=== PATIENT | male | born 1945 | race Caucasian/White ===

== ENCOUNTER → 2017-06-02 | Outpatient (CLI) | payer MEDICARE ==
[~2017-06-02] MED LIST: CATHETER FLUSH 10 ML SYR IV PRN; IBUP1TAB14 PO; INDO25CA PO; IOHEXOL 350 MG/ML 100 ML (OMNIPAQUE 350) VIAL IV ONE; LISI-552 PO; NS 250 ML (IVPB) BAG IV ONE; RECEIVED CONTRAST (Hold Metformin) IV SCH
--- NOTE | 2017-06-02 13:06 | Diagnostic Imaging Report ---
INDICATION: Abnormal outside chest x-ray. CT chest obtained with IV contrast bolus. The outside chest x-ray is not available for comparison at this time. FINDINGS: There are no enlarged mediastinal or hilar nodes. There are calcified nodes in the right hilum and subcarinal region as well as in the left hilum, compatible with old granulomatous disease. There are coronary artery calcifications compatible with coronary artery disease. There are no enlarged axillary nodes. There is no pleural or pericardial effusion. Visualized portions of the upper abdomen were unremarkable. Lung parenchymal windows demonstrate a calcified granuloma in the right middle lobe as well as an additional calcified granuloma in the left upper lobe anteriorly and medially. There is additional small calcified granuloma in the right lower lobe. There is no consolidation or noncalcified pulmonary nodule. IMPRESSION: CT chest demonstrates no adenopathy or suspicious mass lesion. There are old granulomatous changes as described above with calcified nodes in the mediastinum and tracey and calcified granulomata in both lungs. There is no suspicious nodule. There are coronary artery calcifications compatible with coronary artery disease. Dictated by: Dictated on workstation # [id number]
== END ==
LOC: RAD 12:20
PROVIDERS: ATTEND Nurse Practitioner Family
DX: R91.8 Other nonspecific abnormal finding of lung field (principal); I25.10 Atherosclerotic heart disease of native coronary artery without angina pectoris
CPT/HCPCS: 71260

== ENCOUNTER → 2017-07-14 | Outpatient (CLI) | payer MEDICARE ==
[~2017-07-14] VITALS: Ht 172.7 cm; Wt 113.4 kg
[~2017-07-14] MED LIST changes: -IOHEXOL 350 MG/ML 100 ML (OMNIPAQUE 350) VIAL IV ONE; -NS 250 ML (IVPB) BAG IV ONE; -RECEIVED CONTRAST (Hold Metformin) IV SCH; +REGADENOSON 0.4 MG/5 ML SYR (LEXISCAN) IV ONE
[2017-07-14 09:21] VITALS: BP 126/77
--- NOTE | 2017-07-14 14:42 | STRESS TEST ---
DATE OF SERVICE: 07/14/2017 RESTING AND POST REGADENOSON TECHNETIUM-99M TETROFOSMIN SPECT CT IMAGING ORDERING PHYSICIAN: Callie Dodson APRN PRIMARY CARE PHYSICIAN: [facility]. CLINICAL DIAGNOSIS: Chest discomfort. Baseline images were carried out for 10.94 mCi of technetium-99m Tetrofosmin. This was followed by 0.4 mg Regadenoson and 28.5 mCi of technetium-99m Tetrofosmin for stress imaging. The electrocardiogram showed sinus rhythm throughout the study and did not change significantly. The patient tolerated the procedure well. Review of images at rest and following stress does not indicate any distinct perfusion defects consistent with significant myocardial ischemia or infarction. Left ventricular end-diastolic volume is 55 mL. TID is absent (1.03). Left ventricular ejection fraction is calculated to be 67%. CONCLUSIONS: 1. No evidence of any significant myocardial ischemia or infarction on the study. 2. Normal regional wall motion. 3. Normal global left ventricular systolic function with a calculated ejection fraction of 67%. Job ID: [id number] DocumentID: [id number] Dictated Date: 07/14/2017 13:54:13 Pool Nurse Date: 07/14/2017 14:41:35 Dictated By: ELEAZAR FUNK MD, MA, FACP, FACC,
== END ==
LOC: CARD 07:13
PROVIDERS: ATTEND Nurse Practitioner Family
DX: R07.89 Other chest pain (principal); R06.09 Other forms of dyspnea; I10 Essential (primary) hypertension; Z72.0 Tobacco use
CPT/HCPCS: 78452; 93017

== ENCOUNTER → 2017-07-27 | Outpatient (CLI) | payer MEDICARE ==
[~2017-07-27] MED LIST changes: -CATHETER FLUSH 10 ML SYR IV PRN; -REGADENOSON 0.4 MG/5 ML SYR (LEXISCAN) IV ONE
--- NOTE | 2017-07-27 14:51 | Diagnostic Imaging Report ---
PROCEDURE: US carotid duplex bilateral. TECHNIQUE: Multiple Real-time grayscale images were obtained over the carotid arteries in various projections bilaterally. Additional duplex Doppler and color Doppler images were also obtained. INDICATION: Chest discomfort. FINDINGS: Mild plaquing at the carotid bifurcations bilaterally is noted. The velocities are normal bilaterally. No velocity elevation or stenosis is seen. Both vertebral arteries demonstrate antegrade flow. Parameters based on the consensus panel Flannery-Scale and Doppler ultrasound criteria published February 2003, Radiology, Volume 229. DOPPLER (peak systolic velocity M/S Right Left CCA .74 .87 ICA Proximal .56 .62 ICA Mid .55 .65 ICA Distal .47 .71 RATIO .72 .82 ECA 1.0 1.1 VERT .37 .36 IMPRESSION: Mild bilateral carotid plaque. There is no evidence of a hemodynamically significant stenosis. Dictated by: Dictated on workstation # [id number]
== END ==
LOC: RAD 12:40
PROVIDERS: ATTEND Nurse Practitioner Family
DX: I65.23 Occlusion and stenosis of bilateral carotid arteries (principal); I10 Essential (primary) hypertension; R06.00 Dyspnea, unspecified; Z72.0 Tobacco use
CPT/HCPCS: 93880

== ENCOUNTER 2018-08-01 06:44 | Outpatient (CLI) | payer MEDICARE ==
[~2018-08-01] VITALS: Ht 172.7 cm; Wt 113.4 kg
[~2018-08-01 06:44] MED LIST changes: -INDO25CA PO; +INDO25CA15 PO
== END 2018-08-02 10:19 ==
LOC: PREOP 06:44
PROVIDERS: ATTEND Specialist
DX: Z01.818 Encounter for other preprocedural examination (principal)

== ENCOUNTER 2018-08-04 07:52 | Day surgery (SDC) | payer MEDICARE ==
[~2018-08-04] VITALS: Ht 172.7 cm; Wt 113.4 kg
[2018-08-04 08:08] VITALS: BP 144/75
[2018-08-04] MEDS: TETRACAINE 0.5% OPHTH SOLN 4 ML BTL (SINGLE DOSE ONLY) OU PRN ×4 (08:09→08:29)
[2018-08-04] MEDS: TROPICAMIDE 1% OPH SOLN (MYDRIACYL) 15 ML BTL OU PRN ×3 (08:12→08:29)
[2018-08-04] MEDS: PHENYLEPHRINE 10% OPHTH (NEO-SYN) 5 ML BTL OU PRN ×3 (08:15→08:29)
--- NOTE | 2018-08-04 08:16 | Ophthalmologist Pre-Op Note ---
Pre-Operative Progress Note H&P Reviewed The H&P was reviewed, patient examined and no changes noted. Date H&P Reviewed: Aug 04, 2018 Time H&P Reviewed: 08:16 Pre-Op Dx Secondary Cataract, Bilateral Eyes CLARISA ERNST MD Aug 04, 2018 08:16
[2018-08-04 08:45] VITALS: BP 144/75
--- NOTE | 2018-08-04 08:46 | Ophthalmology Operative Report ---
YAG Capsulotomy PREOPERATIVE DIAGNOSIS: Secondary Cataract Bilateral POSTOPERATIVE DIAGNOSIS: Secondary Cataract Bilateral PROCEDURE: YAG Capsulotomy, Bilateral SURGEON: Chip Ernst ANESTHESIA: Topical anesthesia COMPLICATIONS: None ESTIMATED BLOOD LOSS: Minimal DESCRIPTION OF PROCEDURE: After proper informed consent was obtained, the patient's, a 73 male , received one drop of Tropicamide and one drop of Tetracaine in each eye. The patient was then placed at the YAG laser and using a power of [4.3 ] millijoules and bursts [ 21] right eye and [ 27] left eye were used to fashion a central capsulotomy. The patient tolerated the procedure well without complications and the patient's pressure was [11/10 ] shortly after the laser. CHIP ERNST MD Aug 04, 2018 08:46
--- OUTSIDE RECORDS SUMMARY | 2018-08-04 10:11 | XMS REPORT ---
Author Author MINAL MITCHELL Organization [facility] Address [address] [place] [address] Care Team Providers Care Literary Writer Name Role Phone MINAL MITCHELL Unavailable PROBLEMS Type Condition ICD9-CM Code YLU45-TD Code Onset Dates Condition Status SNOMED Code Problem Unspecified hypertrophic and atrophic condition of skin 701.9 Active 294973295 Problem Essential hypertension I10 Active 74175346 Problem Hepatitis C without hepatic coma B19.20 Active 47094841 Problem Lung nodule seen on imaging study R91.1 Active 121138602 Problem Liver fibrosis K74.0 Active 81264340 Problem Back pain M54.9 Active 422172877 Problem Essential hypertension with goal blood pressure less than 130\/85 I10 Active 75348330 Problem History of colon polyps Z86.010 Active 312223760 Problem Lesion of skin of face L98.9 Active 395669196270 Problem History of basal cell cancer Z85.828 Active 865076137 ALLERGIES Substance Reaction Event Type Date Status Seasame Seeds anaphylaxis Non Drug Allergy Nov, Active ENCOUNTERS Encounter Location Date Diagnosis [place] [id number] [place] [address] Nov, Essential hypertension I10 [place] [address] [place] [id number] [place] [address] 25061[address] Sep, [place] [address] [place] [id number] [place] [address] 9[address]19- 5[address] 14 Jun, 2017 Chest discomfort R07.89 ; Dyspnea on exertion R06.09 ; Essential hypertension I10 ; Tobacco use Z72.0 and BMI 40.0-44.9, adult Z68.41 [place] [address] [address] 09 May, 2017 Lung nodule seen on imaging study R91.1 [place] [address] [place] [id number] [place] [address]00- [address] 06 May, 2017 Heartburn R12 ; Chest discomfort R07.89 ; Racing heart beat R00.0 and BMI 40.0-44.9, adult Z68.41 [facility] [address] [place] [id number] [place] [address] 10622- 2628 Nov, Liver fibrosis K74.0 and Hepatitis C without hepatic coma B19.20 [facility] [address] [place] [id number] [place] [address] 20016- 0247 Jun, [facility] [address] [address] Jun, Hepatitis C without hepatic coma B19.20 [facility] [address] [place] [id number] [place] [address] 68176- 2889 Jun, [facility] [address] [address] May, Back pain M54.9 [facility] [address] [place] [id number] [place] [address] 57799- 5580 Feb, [facility] [address] [place] [id number] [place] [address] 23843- 0332 Feb, Back pain M54.9 and Essential hypertension with goal blood pressure less than 130\/85 I10 [facility] [address] [place] [id number] [place] [address] 71122- 6978 Dec, Hepatitis C without hepatic coma B19.20 [facility] [address] [place] [id number] [place] [address] 39[address]1740 Nov, Acute right-sided thoracic back pain M54.6 [facility] [address] [address] Oct, Encounter for immunization Z23 [facility] [address] [place] [id number] [place] [address] 80797- 0159 Oct, Hepatitis C without hepatic coma B19.20 [facility] [address] [address] Sep, Hepatitis C without hepatic coma B19.20 [facility] [address] [address] August, [facility] [address] [address] August, Back pain M54.9 ; Essential hypertension with goal blood pressure less than 130\/85 I10 ; Hepatitis C without hepatic coma B19.20 ; Lesion of skin of face L98.9 and History of basal cell cancer Z85.828 [facility] [address] [address] August, [facility] [address] [place] [address] [address] August, Hepatitis C without hepatic coma B19.20 [facility] [address] [address] August, [facility] [address] [address] August, [facility] [address] [address] Jul, Back pain M54.9 ; Essential hypertension with goal blood pressure less than 130\/85 I10 and Hepatitis C without hepatic coma B19.20 [facility] [address] [address] Jun, Hepatitis C without hepatic coma B19.20 [facility] [address] [address] Jun, [facility] [address] [place] [id number] [place] [address] 66163- 7364 May, Hepatitis C without hepatic coma B19.20 [facility] [address] [address] 27[address] May, Hepatitis C without hepatic coma B19.20 [facility] [address] [place] [id number] [place] [address] 73414- 3243 May, Hepatitis C without hepatic coma B19.20 [facility] [address] [place] [id number] [place] [address] 38762- 6118 Apr, Hepatitis C without hepatic coma B19.20 [place] [address] [place] [id number] [place] [address] 31749- 9640 Apr, Essential hypertension I10 ; Hepatitis C without hepatic coma B19.20 and History of colon polyps Z86.010 [place] [address] [address]- 269[address] Apr, Hepatitis C without hepatic coma B19.20 ; Encounter for immunization Z23 and High blood pressure (not hypertension) R03.0 [place] [address] [place] [id number] [place] [address] 54496- 5562 Jan, [facility] [address] [place] [id number] [place] [address] 52482- 7932 Jan, [place] [address] [place] [id number] [place] [address] 53505- 2769 Jan, [facility] [address] [place] [id number] [place] [address] 76527- 1268 Jan, [place] [address] [place] [id number] [place] [address] 90136- 9988 Jul, IMMUNIZATIONS No Known Immunizations SOCIAL HISTORY Never Assessed REASON FOR VISIT New provider visit, PT reports no concerns. -Tj MCCANN PLAN OF CARE VITAL SIGNS Height 67 in 2017-11-30 Weight 254 lbs 2017-11-30 Temperature 98.1 degrees Fahrenheit 2017-11-30 Heart Rate 76 bpm 2017-11-30 Respiratory Rate 20 2017-11-30 Oximetry 95 % 2017-11-30 BMI 39.78 kg/m2 2017-11-30 Blood pressure systolic 138 mmHg 2017-11-30 Blood pressure diastolic 70 mmHg 2017-11-30 MEDICATIONS Medication Instructions Dosage Frequency Start Date End Date Duration Status Lisinopril 20 mg Orally Once a day TAKE ONE TABLET BY MOUTH ONCE DAILY 24h 30 Active Indomethacin 50MG 1 capsule with food or milk 12h Active Ibuprofen PM 200-38 MG Orally Once a day 2 tablets at bedtime as needed 24h Active RESULTS No Results PROCEDURES Procedure Date Ordered Result Body Site [facility] VISIT ESTABLISHED PATIENT Nov 30, 2017 INSTRUCTIONS MEDICATIONS ADMINISTERED No Known Medications MEDICAL (GENERAL) HISTORY Type Description Date Medical History diverticulosis Medical History HTN Medical History Hepatitis C Medical History History of colon polyps -due for repeat colonosocpy 3 years [place] in 2018 Medical History Basal Cell Carcinoma Face Surgical History Appendectomy Surgical History Colonoscopy Surgical History cataract surgery, both eyes 2013 Surgical History Colonoscopy tubular adenoma due 06/2015 Surgical History Mole removal on back and next to left eye 09/25/2015 Hospitalization History surgeries
--- OUTSIDE RECORDS SUMMARY | 2018-08-04 10:11 | XMS REPORT ---
Author Author MARSHALL MORALES [facility] e[employer] Address Unknown Phone Unavailable Care Team Providers Care Technical Business Systems Analyst Name Role Phone MARSHALL MORALES CP Unavailable Allergies, Adverse Reactions, Alerts Substance Reaction Event Type Seasame Seeds anaphylaxis Non Drug Allergy Problems Problem Type Condition Code Onset Dates Condition Status Problem History of colon polyps Z86.010 Active Problem Hepatitis C without hepatic coma B19.20 Active Problem Essential hypertension I10 Active Assessment Essential hypertension with goal blood pressure less than 130\/85 I10 Active Assessment Hepatitis C without hepatic coma B19.20 Active Problem Unspecified hypertrophic and atrophic condition of skin 701.9 Active Assessment Back pain M54.9 Active Medications Medication Code System Code Instructions Start Date End Date Status Dosage Ibuprofen [facility] [address]-21 800 MG Orally Three times a day 1 tablet Lisinopril [facility] [address]-18 20 mg Orally Once a day May 15, 2015 1 tablet Procedures Procedure Coding System Code Date X-RAY EXAM OF THORACIC SPINE CPT-4 52861 August 13, 2015 LAB NOT BILLED BY [facility] CPT-4 NOBLL August 13, 2015 X-RAY EXAM OF LOWER SPINE CPT-4 19991 August 13, 2015 Office Visit, Est Pt., Level 4 CPT-4 29079 August 13, 2015 [facility] VISIT ESTABLISHED PATIENT CPT-4 G0467 August 13, 2015 VENIPUNCT, ROUTINE* CPT-4 00719 August 13, 2015 Vital Signs Date/Time: August 13, 2015 Temperature 97.8 F Weight 240.6 lbs Height 67 in BMI 37.68 Index Blood Pressure Diastolic 66 mmHg Blood Pressure Systolic 130 mmHg Cardiac Monitoring Heart Rate 86 bpm Results No Known Results Summary Purpose eClinicalWorks Submission
--- OUTSIDE RECORDS SUMMARY | 2018-08-04 10:11 | XMS REPORT ---
Author Author MARSHALL MORALES Organization [facility] Address [address] [place] [address] Care Team Providers Care Foreign Exchange Position Clerk Name Role Phone MARSHALL MORALES Unavailable PROBLEMS Type Condition ICD9-CM Code WPH41-YW Code Onset Dates Condition Status SNOMED Code Problem Unspecified hypertrophic and atrophic condition of skin 701.9 Active 732258519 Problem Essential hypertension I10 Active 74599486 Problem Hepatitis C without hepatic coma B19.20 Active 56988053 Problem Liver fibrosis K74.0 Active 79483796 Problem Back pain M54.9 Active 754085510 Problem Essential hypertension with goal blood pressure less than 130\/85 I10 Active 13240356 Problem History of colon polyps Z86.010 Active 110658293 Problem Lesion of skin of face L98.9 Active 630087787905 Problem History of basal cell cancer Z85.828 Active 592547158 ALLERGIES No Information SOCIAL HISTORY Never Assessed PLAN OF CARE VITAL SIGNS MEDICATIONS Medication Instructions Dosage Frequency Start Date End Date Duration Status Indomethacin 50 mg Orally Twice a day 1 capsule with food or milk 12h Active RESULTS No Results PROCEDURES No Known procedures IMMUNIZATIONS No Known Immunizations MEDICAL (GENERAL) HISTORY Type Description Date Medical History diverticulosis Medical History HTN Medical History Hepatitis C Medical History History of colon polyps -due for repeat colonosocpy 3 years [place] in 2018 Medical History Basal Cell Carcinoma Face Surgical History Appendectomy Surgical History Colonoscopy Surgical History cataract surgery, both eyes 2013 Surgical History Colonoscopy 06/2015 Surgical History Mole removal on back and next to left eye 09/25/2015 Hospitalization History surgeries
--- OUTSIDE RECORDS SUMMARY | 2018-08-04 10:11 | XMS REPORT ---
Author Author MARSHALL MORALES [facility] Address [address] [place] [address] Care Team Providers Care Heater Planer Operator Name Role Phone CARMEN MARSHALL Unavailable PROBLEMS Type Condition ICD9-CM Code QVF15-BC Code Onset Dates Condition Status SNOMED Code Problem Unspecified hypertrophic and atrophic condition of skin 701.9 Active 420057330 Problem Essential hypertension I10 Active 36621941 Problem Hepatitis C without hepatic coma B19.20 Active 40711022 Problem Lung nodule seen on imaging study R91.1 Active 673089435 Problem Liver fibrosis K74.0 Active 19079829 Problem Back pain M54.9 Active 709466846 Problem Essential hypertension with goal blood pressure less than 130\/85 I10 Active 31470954 Problem History of colon polyps Z86.010 Active 838549220 Problem Lesion of skin of face L98.9 Active 684876509030 Problem History of basal cell cancer Z85.828 Active 363472046 ALLERGIES No Information ENCOUNTERS Encounter Location Date Diagnosis [place] [address] [place] [address]11- [address] 15 Nov, 2017 Essential hypertension I10 [place] [address] [place] [id number] [place] [address] 88598- 8434 07 Sep, 2017 [place] [address] [place] [id number] [place] [address] 62024- 7458 14 Jun, 2017 Chest discomfort R07.89 ; Dyspnea on exertion R06.09 ; Essential hypertension I10 ; Tobacco use Z72.0 and BMI 40.0-44.9, adult Z68.41 [place] [address] [place] [id number] [place] [address] 30915- 0082 09 May, 2017 Lung nodule seen on imaging study R91.1 [place] [address] [place] [address] May, Heartburn R12 ; Chest discomfort R07.89 ; Racing heart beat R00.0 and BMI 40.0-44.9, adult Z68.41 [facility] [address] [address]- [address] Nov, Liver fibrosis K74.0 and Hepatitis C without hepatic coma B19.20 [facility] [address] [address]- [address] Jun, [facility] [address] [address]- [address] Jun, Hepatitis C without hepatic coma B19.20 [facility] [address] [address]- [address] Jun, [facility] [address] [address]- 2779 May, Back pain M54.9 [facility] [address] [address]- [address] Feb, [facility] [address] [address]- [address] Feb, Back pain M54.9 and Essential hypertension with goal blood pressure less than 130\/85 I10 [facility] [address] [address]- [address]20 Dec, Hepatitis C without hepatic coma B19.20 [facility] [address] [place] [id number] [place] [address] 78070 -0641 Nov, Acute right-sided thoracic back pain M54.6 [facility] [address] [address] Oct, Encounter for immunization Z23 [facility] [address] [address]- [address]21 Oct, Hepatitis C without hepatic coma B19.20 [facility] [address] [place] [address] 0[address] Sep, Hepatitis C without hepatic coma B19.20 [facility] [address] [place] [address] August, [facility] [address] [place] [address]- [address] August, Back pain M54.9 ; Essential hypertension with goal blood pressure less than 130\/85 I10 ; Hepatitis C without hepatic coma B19.20 ; Lesion of skin of face L98.9 and History of basal cell cancer Z85.828 [facility] [address], [place] [address] August, [facility] [address] [place] [address] August, Hepatitis C without hepatic coma B19.20 [facility] [address] [place] [address] 6[address] August, [facility] [address] [place] [address] August, [facility] [address] [place] [address]- 5[address] Jul, Back pain M54.9 ; Essential hypertension with goal blood pressure less than 130\/85 I10 and Hepatitis C without hepatic coma B19.20 [facility] [address] [place] [address]- 6[address] Jun, Hepatitis C without hepatic coma B19.20 [facility] [address] [place] [address]- 29[address] Jun, [facility] [address] [place] [address]- 27[address] May, Hepatitis C without hepatic coma B19.20 [facility] [address] [place] [address]- [address]369 May, Hepatitis C without hepatic coma B19.20 [place] [address] [place] [address] 58697- 2593 May, Hepatitis C without hepatic coma B19.20 [place] [address] [place] [id number] [place] [address] 47095- 4748 Apr, Hepatitis C without hepatic coma B19.20 [place] [address] [place] [id number] [place] [address] 14536- 5797 Apr, Essential hypertension I10 ; Hepatitis C without hepatic coma B19.20 and History of colon polyps Z86.010 [place] [address] [place] [id number] [place] [address] 52079- 8392 Apr, Hepatitis C without hepatic coma B19.20 ; Encounter for immunization Z23 and High blood pressure (not hypertension) R03.0 [place] [address] [place] [id number] [place] [address] 65754- 8804 Jan, [place] [address] [place] [id number] [place] [address] 31856- 9508 Jan, [place] [address] [place] [id number] [place] [address] 84011- 1860 Jan, [place] [address] [place] [id number] [place] [address] 86811- 4843 Jan, [place] [address] [place] [id number] [place] [address] 44867- 5879 Jul, IMMUNIZATIONS No Known Immunizations SOCIAL HISTORY Never Assessed REASON FOR VISIT Refill request PLAN OF CARE VITAL SIGNS MEDICATIONS Medication Instructions Dosage Frequency Start Date End Date Duration Status Lisinopril 20 mg Orally Once a day TAKE ONE TABLET BY MOUTH ONCE DAILY 24h 30 Active RESULTS No Results PROCEDURES No Known procedures INSTRUCTIONS MEDICATIONS ADMINISTERED No Known Medications MEDICAL [...]
--- OUTSIDE RECORDS SUMMARY | 2018-08-04 10:11 | XMS REPORT ---
Author Author JOSE BOUDREAUX [facility] Address [address] [place] [address] Care Team Providers Care Extracorporeal Technician Name Role Phone JOSE BOUDREAUX Unavailable PROBLEMS Type Condition ICD9-CM Code [id number] Code Onset Dates Condition Status SNOMED Code Problem Unspecified hypertrophic and atrophic condition of skin 701.9 Active 376578593 Problem Essential hypertension I10 Active 46470751 Problem Hepatitis C without hepatic coma B19.20 Active 91678805 Problem Lung nodule seen on imaging study R91.1 Active 730824575 Problem Liver fibrosis K74.0 Active 32629930 Problem Back pain M54.9 Active 920028086 Problem Essential hypertension with goal blood pressure less than 130\/85 I10 Active 91343169 Problem History of colon polyps Z86.010 Active 634763386 Problem Lesion of skin of face L98.9 Active 728486477018 Problem History of basal cell cancer Z85.828 Active 748321199 ALLERGIES Substance Reaction Event Type Date Status Seasame Seeds anaphylaxis Non Drug Allergy Jun, Active ENCOUNTERS Encounter Location Date Diagnosis [place] [id number] [address] Nov, Essential hypertension I10 [facility] [address] [id number] [place] [address] 18132- 4209 Sep, [facility] [id number] [place] [address] 57747- 1919 14 Jun, 2017 Chest discomfort R07.89 ; Dyspnea on exertion R06.09 ; Essential hypertension I10 ; Tobacco use Z72.0 and BMI 40.0-44.9, adult Z68.41 [place] [address] [place] [address] 14203- 3401 09 May, 2017 Lung nodule seen on imaging study R91.1 [place] [address] [place] [address] 09644- 7775 06 May, 2017 Heartburn R12 ; Chest discomfort R07.89 ; Racing heart beat R00.0 and BMI 40.0-44.9, adult Z68.41 [facility] [id number] [place] [address] 22694- 3295 Nov, Liver fibrosis K74.0 and Hepatitis C without hepatic coma B19.20 [facility] [id number] [place] [address] 83952- 6654 Jun, [facility] [address] [id number] [place] [address] 52394- 9104 Jun, Hepatitis C without hepatic coma B19.20 [facility] [id number] [place] [address] 38325- 6500 Jun, [facility] [id number] [place] [address] 95135- 9190 May, Back pain M54.9 [facility] [id number] [place] [address] 45918- 2653 Feb, [facility] [id number] [place] [address] 63504- 1560 Feb, Back pain M54.9 and Essential hypertension with goal blood pressure less than 130\/85 I10 [facility] [id number] [place] [address] 51988- 4146 Dec, Hepatitis C without hepatic coma B19.[address] [facility] [id number] [place] [address] 45373 -0197 Nov, Acute right-sided thoracic back pain M54.6 [facility] [address] [id number] [place] [address] 85761- 4308 Oct, Encounter for immunization Z23 [facility] [id number] [place] [address] 35822- 3854 Oct, Hepatitis C without hepatic coma B19.20 [facility] [address], [place] [address] 2882 Sep, Hepatitis C without hepatic coma B19.20 [facility] [address], [place] [address] August, [facility] [address], [place] [address] August, Back pain M54.9 ; Essential hypertension with goal blood pressure less than 130\/85 I10 ; Hepatitis C without hepatic coma B19.20 ; Lesion of skin of face L98.9 and History of basal cell cancer Z85.828 [facility] [address], [place] [address] August, [facility] [address] [address] 1212 August, Hepatitis C without hepatic coma B19.20 [facility] [address], [place] [address] 38[address] August, [facility] [address], [place] [address] 75[address] August, [facility] [address], [place] [address] 4670 Jul, Back pain M54.9 ; Essential hypertension with goal blood pressure less than 130\/85 I10 and Hepatitis C without hepatic coma B19.20 [facility] [address], [place] [address] 25[address] Jun, Hepatitis C without hepatic coma B19.20 [facility] [address], [place] [address] 6099 Jun, [facility] [address], [place] [address] 1482 May, Hepatitis C without hepatic coma B19.20 [facility] [address], [place] [address] 4071 May, Hepatitis C without hepatic coma B19.20 [facility] [address] [id number] [place] [address] 88495- 3495 May, Hepatitis C without hepatic coma B19.20 [facility] [address] [id number] [place] [address] 48781- 6609 Apr, Hepatitis C without hepatic coma B19.20 [place] [address] 43807- 7455 Apr, Essential hypertension I10 ; Hepatitis C without hepatic coma B19.20 and History of colon polyps Z86.010 [place] [address] 50454- 4026 Apr, Hepatitis C without hepatic coma B19.20 ; Encounter for immunization Z23 and High blood pressure (not hypertension) R03.0 [place] [address] 6[address]- 5269 Jan, [place] [address] [place] [id number] [place] [address] 14332- 6914 Jan, [place] [address] 50934- 7879 Jan, [place] [address] [place] [id number] [place] [address] 54011- 5206 Jan, [place] [address] 6[address]- 0551 Jul, IMMUNIZATIONS No Known Immunizations SOCIAL HISTORY Never Assessed REASON FOR VISIT Racing heart/chest discomfort PLAN OF CARE Activity Details Follow Up after testing Reason: VITAL SIGNS Height 67 in 2017-06-29 Weight 258 lbs 2017-06-29 Heart Rate 76 bpm 2017-06-29 Respiratory Rate 20 2017-06-29 Oximetry 97 % 2017-06-29 BMI 40.40 kg/m2 2017-06-29 Blood pressure systolic 136 mmHg 2017-06-29 Blood pressure diastolic 78 mmHg 2017-06-29 MEDICATIONS Medication Instructions Dosage Frequency Start Date End Date Duration Status Fish Oil 1000 MG Orally Once a day 1 capsule 24h May, 30 day(s ) Not-Taking Indomethacin 50 mg Orally Twice a day 1 capsule with food or milk 12h 30 Active Ibuprofen PM 200-38 MG Orally Once a day 2 tablets at bedtime as needed 24h Active Lisinopril 20 MG TAKE ONE TABLET BY MOUTH ONCE DAILY 30 Active Omeprazole 40 mg Orally Once a day 1 capsule 24h May, 30 day(s ) Not-Taking RESULTS Name Result Date Reference Range Lexiscan Stress Nuclear Test 2017-07-14 Carotid Ultrasound 2017-07-27 Echo 2D 2017-08-09 PROCEDURES Procedure Date Ordered Result Body Site [facility] VISIT ESTABLISHED PATIENT June 29, 2017 INSTRUCTIONS MEDICATIONS ADMINISTERED No Known Medications [...]
--- OUTSIDE RECORDS SUMMARY | 2018-08-04 10:12 | XMS REPORT ---
Author Author MARSHALL MORALES [facility] Address [address] [place] [address] Care Team Providers Care Veterinary Meat Inspector Name Role Phone ABHISHEKIris MARSHALL Unavailable PROBLEMS Type Condition ICD9-CM Code QQO67-[id number] Code Onset Dates Condition Status SNOMED Code Problem Unspecified hypertrophic and atrophic condition of skin 701.9 Active 115275756 Problem Essential hypertension I10 Active 04594471 Problem Hepatitis C without hepatic coma B19.20 Active 25769521 Problem Lung nodule seen on imaging study R91.1 Active 185679271 Problem Liver fibrosis K74.0 Active 33725705 Problem Back pain M54.9 Active 829041617 Problem Essential hypertension with goal blood pressure less than 130\/85 I10 Active 52442753 Problem History of colon polyps Z86.010 Active 703304610 Problem Lesion of skin of face L98.9 Active 419468628182 Problem History of basal cell cancer Z85.828 Active 143400978 ALLERGIES Substance Reaction Event Type Date Status Seasame Seeds anaphylaxis Non Drug Allergy May, Active ENCOUNTERS Encounter Location Date Diagnosis [place] [address] [place] [address] 43766- 6437 Sep, [place] [address] [place] [id number] [place] [address] 34268- 6557 Jun, Chest discomfort R07.89 ; Dyspnea on exertion R06.09 ; Essential hypertension I10 ; Tobacco use Z72.0 and BMI 40.0-44.9, adult Z68.41 [place] [address] [place] [address] 33951- 6273 May, Lung nodule seen on imaging study R91.1 [place] [address] [place] [address] 56994- 9741 May, Heartburn R12 ; Chest discomfort R07.89 ; Racing heart beat R00.0 and BMI 40.0-44.9, adult Z68.41 [facility] [address] [address]- [address] Nov, Liver fibrosis K74.0 and Hepatitis C without hepatic coma B19.20 [facility] [address] 29524- 1832 Jun, [facility] [address] 81074- 1527 Jun, Hepatitis C without hepatic coma B19.20 [facility] [address] 79[address]- 0216 Jun, [facility] [address] 48807- 8207 May, Back pain M54.9 [facility] [address] 42[address]- 0588 Feb, [facility] [address] 41440- 0934 Feb, Back pain M54.9 and Essential hypertension with goal blood pressure less than 130\/85 I10 [facility] [address] 78[address]- 1360 Dec, Hepatitis C without hepatic coma B19.20 [facility] [address] [address]60[address] Nov, Acute right-sided thoracic back pain M54.6 [facility] [address] 94687- 8817 Oct, Encounter for immunization Z23 [facility] [address] 7[address]- 5880 Oct, Hepatitis C without hepatic coma B19.20 [facility] [address] 02272- 2759 Sep, Hepatitis C without hepatic coma B19.20 [facility] [address], [place] [address]- [address] August, [facility] [address], [place] [address]- 1632 August, Back pain M54.9 ; Essential hypertension with goal blood pressure less than 130\/85 I10 ; Hepatitis C without hepatic coma B19.20 ; Lesion of skin of face L98.9 and History of basal cell cancer Z85.828 [facility] [address], [place] [address]- 30[address] August, [facility] [address], [place] [address]- 0504 August, Hepatitis C without hepatic coma B19.20 [facility] [address], [place] [address]- 0932 August, [facility] [address], [place] [address]- [address] August, [facility] [address], [place] [address]- 3997 Jul, Back pain M54.9 ; Essential hypertension with goal blood pressure less than 130\/85 I10 and Hepatitis C without hepatic coma B19.20 [facility] [address], [place] [address]- 9065 Jun, Hepatitis C without hepatic coma B19.20 [facility] [address], [place] [address]- 0168 Jun, [facility] [address], [place] [address]- 0260 May, Hepatitis C without hepatic coma B19.20 [facility] [address], [place] [address]- 7259 May, Hepatitis C without hepatic coma B19.20 [facility] [id number] [place] [address] 29332- 6361 May, Hepatitis C without hepatic coma B19.20 [facility] [address] [place] [address]473- 4877 Apr, Hepatitis C without hepatic coma B19.20 [facility] [address] [id number] [place] [address] 10767- 0873 Apr, Essential hypertension I10 ; Hepatitis C without hepatic coma B19.20 and History of colon polyps Z86.010 [facility] [address] [place] [id number] [place] [address] 85908- 1042 Apr, Hepatitis C without hepatic coma B19.20 ; Encounter for immunization Z23 and High blood pressure (not hypertension) R03.0 [facility] [address] [place] [id number] [place] [address] 56332- 9084 Jan, [facility] [address] 47212- 2173 Jan, [facility] [address] [place] [id number] [place] [address] 65348- 3124 Jan, [facility] [address] 025[address]- 0223 Jan, [place] [address] [place] [address] [id number] [place] [address] 25819- 5344 Jul, IMMUNIZATIONS No Known Immunizations SOCIAL HISTORY Never Assessed REASON FOR VISIT Acid Reflux--tjanssenMA, --still having acid reflux issues, changed diet, -- heart races while walking, has to slow down to rest when doing any walking. PLAN OF CARE Activity Details Follow Up lab and xray and referral Reason: VITAL SIGNS Height 67 in 2017-05-24 Weight 258.1 lbs 2017-05-24 Temperature 97.8 degrees Fahrenheit 2017-05-24 Heart Rate 78 bpm 2017-05-24 Respiratory Rate 20 2017-05-24 Oximetry 95 % 2017-05-24 BMI 40.42 kg/m2 2017-05-24 Blood pressure systolic 134 mmHg 2017-05-24 Blood pressure diastolic 80 mmHg 2017-05-24 MEDICATIONS Medication Instructions Dosage Frequency Start Date End Date Duration Status Ibuprofen PM 200-38 MG Orally Once a day 2 tablets at bedtime as needed 24h Active Omeprazole 40 mg Orally Once a day 1 capsule 24h 06 May, 2017 30 day(s ) Active Lisinopril 20 MG TAKE ONE TABLET BY MOUTH ONCE DAILY 30 Active Indomethacin 50 mg Orally Twice a day 1 capsule with food or milk 12h 30 Active RESULTS No Results PROCEDURES Procedure Date Ordered Result Body Site EKG, TRACING (IN-HOUSE) 2017-05-24 N/A MEASURE BLOOD OXYGEN LEVEL May 24, 2017 VENIPUNCT, ROUTINE* May 24, 2017 ELECTROCARDIOGRAM, TRACING May 24, 2017 X-RAY EXAM CHEST 2 VIEWS May 24, 2017 [facility] VISIT ESTABLISHED PATIENT May 24, 2017 LAB NOT BILLED BY [facility] May 24, 2017 INSTRUCTIONS MEDICATIONS ADMINISTERED No Known Medications MEDICAL (GENERAL) HISTORY Type Description Date Medical History diverticulosis Medical History HTN Medical History Hepatitis C Medical History History of colon polyps -due for repeat colonosocpy 3 years [facility] in 2017 Medical History Basal Cell Carcinoma Face Surgical History Appendectomy Surgical History Colonoscopy Surgical History cataract surgery, both eyes 2013 Surgical History Colonoscopy tubular adenoma due 06/2015 Surgical History Mole removal on back and next to left eye 09/25/2015 Hospitalization History surgeries
--- OUTSIDE RECORDS SUMMARY | 2018-08-04 10:12 | XMS REPORT ---
Author Author DOMENICA DE LA ROSA Organization [employer] Address Unknown Phone Unavailable Care Team Providers Care Real Estate Asset Manager Name Role Phone DOMENICA DE LA ROSA CP Unavailable Allergies, Adverse Reactions, Alerts Substance Reaction Event Type Seasame Seeds anaphylaxis Non Drug Allergy Problems Problem Type Condition Code Onset Dates Condition Status Problem Unspecified hypertrophic and atrophic condition of skin 701.9 Active Assessment Hepatitis C without hepatic coma B19.20 Active Problem Essential hypertension with goal blood pressure less than 130\/85 I10 Active Problem Lesion of skin of face L98.9 Active Problem Back pain M54.9 Active Problem History of colon polyps Z86.010 Active Problem Hepatitis C without hepatic coma B19.20 Active Problem History of basal cell cancer Z85.828 Active Problem Essential hypertension I10 Active Medications Medication Code System Code Instructions Start Date End Date Status Dosage Harvoni [facility] [address]-87 90-400 MG Orally Once a day August 27, 2015October 1 tablet Lisinopril [facility] [address]-40 20 mg Orally Once a day May 15, 2015 1 tablet Indomethacin [facility] [address]-57 50 mg Orally Twice a day August 19, 2015 September 09, 2015 1 capsule with food or milk Ibuprofen [facility] [address]-59 800 MG Orally Three times a day 1 tablet Procedures Procedure Coding System Code Date Office Visit, Est Pt., Level 4 CPT-4 48115 August 27, 2015 [facility] VISIT ESTABLISHED PATIENT CPT-4 G0467 August 27, 2015 Vital Signs Date/Time: August 27, 2015 Cardiac Monitoring Heart Rate 64 bpm Weight 248 lbs Height 67 in Blood Pressure Diastolic 86 mmHg Blood Pressure Systolic 130 mmHg Results No Known Results Summary Purpose [employer] Submission
--- OUTSIDE RECORDS SUMMARY | 2018-08-04 10:12 | XMS REPORT ---
Author Author DOMENICA QUEZADA Organization [facility] Address [address] [place] [address] Care Team Providers Care Editor House Organ Name Role Phone DOMENICA QUEZADA Unavailable PROBLEMS Type Condition ICD9-CM Code [id number] Code Onset Dates Condition Status SNOMED Code Problem Unspecified hypertrophic and atrophic condition of skin 701.9 Active 400491202 Problem Essential hypertension I10 Active 47972607 Problem Hepatitis C without hepatic coma B19.20 Active 46207092 Problem Lung nodule seen on imaging study R91.1 Active 317404264 Problem Liver fibrosis K74.0 Active 54179939 Problem Back pain M54.9 Active 198225076 Problem Essential hypertension with goal blood pressure less than 130\/85 I10 Active 02807811 Problem History of colon polyps Z86.010 Active 339731939 Problem Lesion of skin of face L98.9 Active 346556266504 Problem History of basal cell cancer Z85.828 Active 379241632 ALLERGIES No Information ENCOUNTERS Encounter Location Date Diagnosis [place] [address] [address] 14 Jun, 2017 Chest discomfort R07.89 ; Dyspnea on exertion R06.09 ; Essential hypertension I10 ; Tobacco use Z72.0 and BMI 40.0-44.9, adult Z68.41 [facility] [address] [place] [address] 99646- 7497 09 May, 2017 Lung nodule seen on imaging study R91.1 [facility] [address] [address]- [address] 06 May, 2017 Heartburn R12 ; Chest discomfort R07.89 ; Racing heart beat R00.0 and BMI 40.0-44.9, adult Z68.41 [facility] [address] [place] [id number] [place] [address] 08882- 3971 Nov, Liver fibrosis K74.0 and Hepatitis C without hepatic coma B19.20 [facility] [address] [place] [address] 69270- 5353 Jun, [facility] [address] [id number] [place] [address] 24985- 8775 Jun, Hepatitis C without hepatic coma B19.20 [facility] [id number] [place] [address] 22814- 6154 Jun, [facility] [address] [id number] [place] [address] 65812- 1426 May, Back pain M54.9 [facility] [id number] [place] [address] 68878- 5919 Feb, [facility] [id number] [place] [address] 53830- 5175 Feb, Back pain M54.9 and Essential hypertension with goal blood pressure less than 130\/85 I10 [facility] [id number] [place] [address] 96581- 4025 Dec, Hepatitis C without hepatic coma B19.20 [facility] [address] [id number] [place] [address] 37489 -9087 Nov, Acute right-sided thoracic back pain M54.6 [facility] [id number] [place] [address] 86861- 9138 Oct, Encounter for immunization Z23 [facility] [id number] [place] [address] 37556- 8372 Oct, Hepatitis C without hepatic coma B19.20 [facility] [id number] [place] [address] 48280- 6726 Sep, Hepatitis C without hepatic coma B19.20 [facility] [id number] [place] [address] 26532- 3272 August, [facility] [address], [place] [address]- 8427 August, Back pain M54.9 ; Essential hypertension with goal blood pressure less than 130\/85 I10 ; Hepatitis C without hepatic coma B19.20 ; Lesion of skin of face L98.9 and History of basal cell cancer Z85.828 [facility] [address], [place] [address]- 2[address] August, [facility] [id number] [place] [address] 95003- 2543 August, Hepatitis C without hepatic coma B19.20 [facility] [address], [place] [address]- 9742 August, [facility] [address], [place] [address]- 1096 August, [facility] [address] [place] [address] 77876- 2039 Jul, Back pain M54.9 ; Essential hypertension with goal blood pressure less than 130\/85 I10 and Hepatitis C without hepatic coma B19.20 [facility] [address] [place] [address]- 4453 Jun, Hepatitis C without hepatic coma B19.20 [facility] [address], [place] [address]- 7050 Jun, [facility] [address], [place] [address]- 1434 May, Hepatitis C without hepatic coma B19.20 [facility] [address], [place] [address]- 0734 May, Hepatitis C without hepatic coma B19.20 [facility] [address], [place] [address]- 7456 May, Hepatitis C without hepatic coma B19.20 [facility] [address], [place] [address]- 1051 Apr, Hepatitis C without hepatic coma B19.20 [facility] [address], [place] [address]- 5122 Apr, Essential hypertension I10 ; Hepatitis C without hepatic coma B19.20 and History of colon polyps Z86.010 [facility] [address] [place] [id number] [place] [address] 70412- 8392 Apr, Hepatitis C without hepatic coma B19.20 ; Encounter for immunization Z23 and High blood pressure (not hypertension) R03.0 [facility] [id number] [place] [address] 99315- 9418 Jan, [facility] [id number] [place] [address] 36159- 0860 Jan, [facility] [id number] [place] [address] 39626- 3483 Jan, [facility] [id number] [place] [address] 79527- 9571 Jan, [facility] [address] [place] [address] 32343- 0774 Jul, IMMUNIZATIONS No Known Immunizations SOCIAL HISTORY Never Assessed REASON FOR VISIT Hep C note PLAN OF CARE VITAL SIGNS MEDICATIONS Unknown Medications RESULTS No Results PROCEDURES No Known procedures [...]
--- OUTSIDE RECORDS SUMMARY | 2018-08-04 10:12 | XMS REPORT ---
Author Author DIANE MESSER [employer] Address Unknown Phone Unavailable Care Team Providers Care Secondary School Special Ed Teacher Name Role Phone DIANE MESSER Unavailable Allergies No Known Allergies Problems Problem Type Condition Code Onset Dates Condition Status Problem History of colon polyps Z86.010 Active Problem Hepatitis C without hepatic coma B19.20 Active Problem Essential hypertension I10 Active Problem Unspecified hypertrophic and atrophic condition of skin 701.9 Active Assessment Hepatitis C without hepatic coma B19.20 Active Medications No Known Medications Procedures Procedure Coding System Code Date PROTHROMBIN TIME CPT-4 14487 May 19, 2015 ASSAY, NEPHELOMETRY NOT SPEC CPT-4 49902 May 19, 2015 [facility] NO[facility] May 19, 2015 VENIPUNCT, ROUTINE* CPT-4 01320 May 19, 2015 ALANINE AMINO (ALT) (SGPT) CPT-4 98642 May 19, 2015 Results Name Result Date Reference Range Unit Abnormality Flag ROUTINE VENIPUNCTURE Summary Purpose [employer] Submission
--- OUTSIDE RECORDS SUMMARY | 2018-08-04 10:12 | XMS REPORT ---
Author MONA Bland [facility] eClinicalWorks Address Unknown Phone Unavailable Care Team Providers Care Public Health Technician Name Role Phone MONA KEENE CP Unavailable Allergies, Adverse Reactions, Alerts Substance Reaction Event Type Seasame Seeds anaphylaxis Non Drug Allergy Problems Problem Type Condition Code Onset Dates Condition Status Problem Unspecified hypertrophic and atrophic condition of skin 701.9 Active Assessment Acute right-sided thoracic back pain M54.6 Active Problem Essential hypertension with goal blood [...] Instructions Start Date End Date Status Dosage PredniSONE [facility] [address]-82 50 MG Orally Once a day Nov 30, 2015 Dec 05, 2015 1 tablet Cyclobenzaprine HCl [facility] [address]-51 10 MG Orally Three times a day NovDec 05, 2015 1 tablet Ibuprofen PM [facility] [address]-15 200-38 MG Orally Once a day 2 tablets at bedtime as needed Indomethacin [facility] 98397174478 50 mg Orally Twice a day 1 capsule with food or milk Lisinopril [facility] [address]-88 20 mg Orally Once a day 1 tablet Procedures Procedure Coding System Code Date Office Visit, Est Pt., Level 3 CPT-4 24645 Nov 30, 2015 [facility] VISIT ESTABLISHED PATIENT CPT-4 G0467 Nov 30, 2015 Vital Signs Date/Time: Nov 30, 2015 Cardiac Monitoring Heart Rate 64 bpm Weight 247.0 lbs Height 67 in BMI 38.68 Index Blood Pressure Diastolic 72 mmHg Blood Pressure Systolic 124 mmHg Results No Known Results Summary Purpose eClinicalWorks Submission
--- OUTSIDE RECORDS SUMMARY | 2018-08-04 10:12 | XMS REPORT ---
Author Author DIANE MESSER Organization eClinicalWorks Address Unknown Phone Unavailable Care Team Providers Care Command Center Officer Name Role Phone DIANE MESSER CP Unavailable Allergies, Adverse Reactions, Alerts Substance Reaction Event Type Seasame Seeds anaphylaxis Non Drug Allergy Problems Problem Type Condition Code Onset Dates Condition Status Problem Unspecified hypertrophic and atrophic condition of skin 701.9 Active Assessment Hepatitis C without hepatic coma B19.20 Active Problem Hepatitis C without hepatic coma B19.20 Active Assessment Encounter for immunization Z23 Active Assessment High blood pressure (not hypertension) R03.0 Active Medications No Known Medications Procedures Procedure Coding System Code Date Office Visit, Est Pt., Level 3 CPT-4 55549 May 01, 2015 PCV 13 CPT-4 13502 May 01, 2015 [facility] VISIT ESTABLISHED PATIENT CPT-4 G0467 May 01, 2015 IMMUNIZATION ADMIN, EACH ADD (please include units) CPT-4 82224 May 01, 2015 VENIPUNCT, ROUTINE* CPT-4 27498 May 01, 2015 FLUARIX QUAD (3 & UP)-GSK-2014 CPT-4 54052 May 01, 2015 SINGLE IMMUNIZATION ADMIN CPT-4 85793 May 01, 2015 [place] (HEP A/B) CPT-4 39228 May 01, 2015 Vital Signs Date/Time: May 01, 2015 Temperature 98.3 F Weight 241.0 lbs Height 67 in BMI 37.74 Index Blood Pressure Diastolic 92 mmHg Blood Pressure Systolic 144 mmHg Cardiac Monitoring Heart Rate 84 bpm Results Name Result Date Reference Range Unit Abnormality Flag ROUTINE VENIPUNCTURE Immunizations Vaccine Administration Date PCV 13 May 01, 2015 FLUARIX QUAD (3 & UP)-GSK-2014May 01, 2015 [place] (HEP A/B) May 01, 2015 Summary Purpose eClinicalWorks Submission
--- OUTSIDE RECORDS SUMMARY | 2018-08-04 10:12 | XMS REPORT ---
Author Author MARSHALL MORALES [facility] Address [address] [place] [address] Care Team Providers Care Practice Administrator Name Role Phone MARSHALL MORALES Unavailable PROBLEMS Type Condition ICD9-CM Code FRC31-BR Code Onset Dates Condition Status SNOMED Code Problem Unspecified hypertrophic and atrophic condition of skin 701.9 Active 424710460 Problem Essential hypertension I10 Active 74539218 Problem Hepatitis C without hepatic coma B19.20 Active 93545552 Problem Liver fibrosis K74.0 Active 02975904 Problem Back pain M54.9 Active 431077671 Problem Essential hypertension with goal blood pressure less than 130\/85 I10 Active 50526559 Problem History of colon polyps Z86.010 Active 463331246 Problem Lesion of skin of face L98.9 Active 239608878142 Problem History of basal cell cancer Z85.828 Active 686856316 ALLERGIES No Information SOCIAL HISTORY Never Assessed PLAN OF CARE VITAL SIGNS MEDICATIONS Unknown [...]
--- OUTSIDE RECORDS SUMMARY | 2018-08-04 10:12 | XMS REPORT ---
Author Author DIANE MESSER Organization eClinicalWorks Address Unknown Phone Unavailable Care Team Providers Care Train Controller Name Role Phone DIANE MESSER CP Unavailable Allergies, Adverse Reactions, Alerts Substance Reaction Event Type Seasame Seeds anaphylaxis Non Drug Allergy Problems Problem Type Condition Code Onset Dates Condition Status Problem History of colon polyps Z86.010 Active Problem Hepatitis C without hepatic coma B19.20 Active Problem Essential hypertension I10 Active Assessment Hepatitis C without hepatic coma B19.20 Active Assessment History of colon polyps Z86.010 Active Problem Unspecified hypertrophic and atrophic condition of skin 701.9 Active Assessment Essential hypertension I10 Active Medications Medication Code System Code Instructions Start Date End Date Status Dosage Lisinopril [facility] [address]-94 20 MG Orally Once a day May 15, 2015 1 tablet Milk Thistle [facility] [address]892 1000 MG Orally Once a day 1-3 Procedures Procedure Coding System Code Date Office Visit, Est Pt., Level 3 CPT-4 94405 May 15, 2015 [facility] VISIT ESTABLISHED PATIENT CPT-4 G0467 May 15, 2015 Vital Signs Date/Time: May 15, 2015 Temperature 97.4 F Weight 244.6 lbs Height 67 in BMI 38.31 Index Blood Pressure Diastolic 82 mmHg Blood Pressure Systolic 148 mmHg Cardiac Monitoring Heart Rate 76 bpm Results No Known Results Summary Purpose eClinicalWorks Submission
--- OUTSIDE RECORDS SUMMARY | 2018-08-04 10:12 | XMS REPORT ---
Author DOMENICA Marlow Organization eClinicalWorks Address Unknown Phone Unavailable Care Team Providers Care Agricultural Mechanic Name Role Phone DOMENICA QUEZADA CP Unavailable Allergies No Known Allergies Problems Problem Type Condition Code Onset Dates Condition Status Problem Unspecified hypertrophic and atrophic condition of skin 701.9 Active Assessment Encounter for immunization Z23 Active Problem Essential hypertension with goal blood pressure less than 130\/85 I10 Active Problem Lesion of skin of face L98.9 Active Problem Back pain M54.9 Active Problem History of colon polyps Z86.010 Active Problem Hepatitis C without hepatic coma B19.20 Active Problem History of basal cell cancer Z85.828 Active Problem Essential hypertension I10 Active Medications No Known Medications Procedures Procedure Coding System Code Date SINGLE IMMUNIZATION ADMIN CPT-4 54674 November 14, 2015 HEP B (ADULT) CPT-4 81654 November 14, 2015 Results No Known Results Immunizations Vaccine Administration Date HEP B (ADULT) November 14, 2015 Summary Purpose eClinicalWorks Submission
--- OUTSIDE RECORDS SUMMARY | 2018-08-04 10:12 | XMS REPORT ---
Author Author MARSHALL MORALES Organization eClinicalWorks Address Unknown Phone Unavailable Care Team Providers Care House Parent Name Role Phone MARSHALL MORALES CP Unavailable Allergies No Known Allergies Problems Problem Type Condition Code Onset Dates Condition Status Problem History of colon polyps Z86.010 Active Problem Hepatitis C without hepatic coma B19.20 Active Problem Essential hypertension I10 Active Problem Unspecified hypertrophic and atrophic condition of skin 701.9 Active Medications Medication Code System Code Instructions Start Date End Date Status Dosage Indomethacin [facility] [address]-31 50 mg Orally Twice a day August 19, 2015 September 09, 2015 1 capsule with food or milk Results No Known Results Summary Purpose eClinicalWorks Submission
--- OUTSIDE RECORDS SUMMARY | 2018-08-04 10:12 | XMS REPORT ---
Author DOMENICA Marlow Organization eClinicalWorks Address Unknown Phone Unavailable Care Team Providers Care Platform Mill Supervisor Name Role Phone DOMENICA QUEZADA CP Unavailable Allergies, Adverse Reactions, Alerts Substance [...] Start Date End Date Status Dosage Harvoni [facility][NOTE 3] [address]-00 90-400 MG Orally Once a day August 27, 2015 1 tablet Ibuprofen PM [facility][NOTE 3] [address]-91 200-38 MG Orally Once a day 2 tablets at bedtime as needed Indomethacin [facility][NOTE 3] 16328079971 50 mg Orally Twice a day 1 capsule with food or milk Lisinopril [facility][NOTE 3] [address]-49 20 mg Orally Once a day 1 tablet Procedures Procedure Coding System Code Date VENIPUNCT, ROUTINE* CPT-4 11470 October 28, 2015 [facility] VISIT ESTABLISHED PATIENT CPT-4 G0467 October 28, 2015 [facility] NOBLL October 28, 2015 Office Visit, Est Pt., Level 4 CPT-4 18224 October 28, 2015 Vital Signs Date/Time: October 28, 2015 Cardiac Monitoring Heart Rate 76 bpm Weight 244.5 lbs Height 67 in BMI 38.29 Index Blood Pressure Diastolic 72 mmHg Blood Pressure Systolic 122 mmHg Results No Known Results Summary Purpose eClinicalWorks Submission
--- OUTSIDE RECORDS SUMMARY | 2018-08-04 10:13 | XMS REPORT ---
Author Author MARSHALL MORALES Organization eClinicalWorks Address Unknown Phone Unavailable Care Team Providers Care Solutions Executive Security Name Role Phone MARSHALL MORALES CP Unavailable Allergies No Known Allergies Problems Problem Type Condition Code Onset Dates Condition Status Problem Unspecified hypertrophic and atrophic condition of skin 701.9 Active Problem Essential hypertension with goal blood [...] Start Date End Date Status Dosage Lisinopril [facility] [address]-55 20 mg Orally Once a day 1 tablet Results No Known Results Summary Purpose eClinicalWorks Submission
--- OUTSIDE RECORDS SUMMARY | 2018-08-04 10:13 | XMS REPORT ---
Author Author DOMENICA QUEZADA Organization [facility] Address [address] [place] [address] Care Team Providers Care Forger Helper Name Role Phone DOMENICA QUEZADA Unavailable PROBLEMS Type Condition ICD9-CM Code [id number] Code Onset Dates Condition Status SNOMED Code Problem Unspecified hypertrophic and atrophic condition of skin 701.9 Active 191625235 Problem Essential hypertension I10 Active 38556831 Problem Hepatitis C without hepatic coma B19.20 Active 55280121 Problem Liver fibrosis K74.0 Active 77739229 Problem Back pain M54.9 Active 730017285 Problem Essential hypertension with goal blood pressure less than 130\/85 I10 Active 76847637 Problem History of colon polyps Z86.010 Active 925489398 Problem Lesion of skin of face L98.9 Active 789489453094 Problem History of basal cell cancer Z85.828 Active 700579747 ALLERGIES No Information SOCIAL HISTORY Never Assessed [...]
--- OUTSIDE RECORDS SUMMARY | 2018-08-04 10:13 | XMS REPORT | Continuity of Care Document ---
Author Organization Unknown Address Unknown Allergies Active Description Code Type Severity Reaction Onset Reported/Identified Relationship to Patient Clinical Status Yes No Known Drug Allergies [id number] Drug Allergy Unknown N/A 06/20/2015 Medications There is no data. Problems Date Dx Coded Attending Type Code Diagnosis Diagnosed By 05/16/2010 JACQUELYN GREER MD 070.54 HEPATITIS C CHRONIC 05/16/2010 JACQUELYN GREER MD 239.2 NEOPLASM OF UNSPECIFIED NATURE OF BONE SOFT TISSUE AND SKIN 05/18/2010 JACQUELYN GREER MD 716.90 ARTHRITIS/ ARTHROPATHY, UNSPECIFIED 07/24/2010 JACQUELYN GREER MD 719.46 KNEE PAIN 11/05/2010 JACQUELYN GREER MD 836.0 TEAR OF MEDIAL CARTILAGE OR MENISCUS OF KNEE CURRENT 02/13/2013 JACQUELYN GREER MD 701.9 UNSPECIFIED HYPERTROPHIC AND ATROPHIC CONDITIONS OF SKIN 08/07/2014 Ot 715.36 09/12/2014 Ot 715.36 06/24/2015 AUSTIN LUGO DO Ot Z01.818 06/24/2015 AUSTIN LUGO DO Ot 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 06/24/2015 AUSTIN LUGO DO Ot K57.30 DVRTCLOS OF LG INT W/O PERFORATION OR AB 06/24/2015 AUSTIN LUGO DO Ot K63.5 POLYP OF COLON 06/24/2015 AUSTIN LUGO DO Ot Z12.11 ENCOUNTER FOR SCREENING FOR MALIGNANT NE 09/22/2015 AUSTIN LUGO DO Ot L98.9 DISORDER OF THE SKIN AND SUBCUTANEOUS TI 09/22/2015 AUSTIN LUGO DO Ot Z01.818 ENCOUNTER FOR OTHER PREPROCEDURAL EXAMIN 09/24/2015 AUSTIN LUGO DO Ot L98.9 DISORDER OF THE SKIN AND SUBCUTANEOUS TI 09/24/2015 AUSTIN LUGO DO Ot Z01.818 ENCOUNTER FOR OTHER PREPROCEDURAL EXAMIN 09/25/2015 GRENOLA AUSTIN CONKLIN Ot D23.5 OTHER BENIGN NEOPLASM OF SKIN OF TRUNK 09/25/2015 GRENOLA A[place]IN CONKLIN Ot L82.1 OTHER SEBORRHEIC KERATOSIS [facility]/02[facility] D23.5 OTHER BENIGN NEOPLASM OF SKIN OF TRUNK 10/02/2015 [facility] Ot L82.1 OTHER SEBORRHEIC KERATOSIS 05/31/2017 [facility] Ot Z01.818 ENCOUNTER FOR OTHER PREPROCEDURAL EXAMIN 06/03/2017 MADL MARSHALL L KST OPERATOR 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 06/03/2017 MADL MARSHALL L KST OPERATOR Ot R91.8 OTHER NONSPECIFIC ABNORMAL FINDING OF ANGEL[place] 06/22/2017 MADL, MARSHALL L KST OPERATOR 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 06/22/2017 MADL, MARSHALL L KST OPERATOR Ot R91.8 OTHER NONSPECIFIC ABNORMAL FINDING OF ANGEL[place] 06/30/2017 BAIMA, JOSE L KST OPERATOR Ot R07.89 OTHER CHEST PAIN 07/14/2017 BAIMA, JOSE L KST OPERATOR Ot I10 ESSENTIAL (PRIMARY) HYPERTENSION 07/14/2017 BAIMA, JOSE L KST OPERATOR Ot R06.09 OTHER FORMS OF DYSPNEA 07/14/2017 BAIMA, JOSE L KST OPERATOR Ot R07.89 OTHER CHEST PAIN 07/14/2017 BAIMA, JOSE L KST OPERATOR Ot Z72.0 TOBACCO USE 07/18/2017 BAIMA, JOSE L KST OPERATOR Ot R07.89 OTHER CHEST PAIN 07/27/2017 GRENOLA [place] CONKLIN Ot Z01.818 ENCOUNTER FOR OTHER PREPROCEDURAL EXAMIN 07/27/2017 MADL, MARSHALL L KST OPERATOR 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 07/27/2017 MADL, MARSHALL L KST OPERATOR Ot R91.8 OTHER NONSPECIFIC ABNORMAL FINDING OF ANGEL[place] 07/27/2017 BAIMA, JOSE L KST OPERATOR Ot R07.89 OTHER CHEST PAIN 07/27/2017 BAIMA, JOSE L KST OPERATOR Ot I10 ESSENTIAL (PRIMARY) HYPERTENSION 07/27/2017 BAIMA, JOSE L KST OPERATOR Ot R06.09 OTHER FORMS OF DYSPNEA 07/27/2017 BAIMA, JOSE L KST OPERATOR Ot R07.89 OTHER CHEST PAIN 07/27/2017 BAIMA, JOSE L KST OPERATOR Ot Z72.0 TOBACCO USE 07/27/2017 BAIMA, JOSE L KST OPERATOR Ot R07.89 OTHER CHEST PAIN 08/08/2017 BAIMA, JOSE L KST OPERATOR Ot I10 ESSENTIAL (PRIMARY) HYPERTENSION 08/08/2017 BAIMA, JOSE L KST OPERATOR Ot R06.09 OTHER FORMS OF DYSPNEA 08/08/2017 BAIMA, JOSE L KST OPERATOR Ot R07.89 OTHER CHEST PAIN 08/08/2017 BAIMA, JOSE L KST OPERATOR Ot Z72.0 TOBACCO USE 08/10/2017 BAIMA, JOSE L KST OPERATOR Ot I10 ESSENTIAL (PRIMARY) HYPERTENSION 08/10/2017 BAIMA, JOSE L KST OPERATOR Ot R06.09 OTHER FORMS OF DYSPNEA 08/10/2017 BAIMA, JOSE L KST OPERATOR Ot R07.89 OTHER CHEST PAIN 08/10/2017 BAIMA, JOSE L KST OPERATOR Ot Z72.0 TOBACCO USE 08/16/2017 BAIMA, JOSE L KST OPERATOR Ot I10 ESSENTIAL (PRIMARY) HYPERTENSION 08/16/2017 BAIMA, JOSE L KST OPERATOR Ot I65.23 OCCLUSION AND STENOSIS OF BILATERAL YUNG 08/16/2017 BAIMA, JOSE L KST OPERATOR Ot R06.00 DYSPNEA, UNSPECIFIED 08/16/2017 BAIMA, JOSE L KST OPERATOR Ot Z72.0 TOBACCO USE 08/31/2017 BAIMA, JOSE L KST OPERATOR Ot I10 ESSENTIAL (PRIMARY) HYPERTENSION 08/31/2017 BAIMA, JOSE L KST OPERATOR Ot R06.09 OTHER FORMS OF DYSPNEA 08/31/2017 BAIMA, JOSE L KST OPERATOR Ot R07.89 OTHER CHEST PAIN 08/31/2017 BAIMA, JOSE L KST OPERATOR Ot Z72.0 TOBACCO USE 08/02/2018 CLARISA ERNST MD Ot Z01.818 ENCOUNTER FOR OTHER PREPROCEDURAL EXAMIN 08/02/2018 CLARISA ERNST MD Ot Z01.818 ENCOUNTER FOR OTHER PREPROCEDURAL EXAMIN 08/02/2018 CLARISA ERNST MD Ot Z01.818 ENCOUNTER FOR OTHER PREPROCEDURAL EXAMIN 08/04/2018 AUSTIN LUGO DO Ot Z01.818 ENCOUNTER FOR OTHER PREPROCEDURAL EXAMIN 08/04/2018 MARSHALL MORALES KST OPERATOR 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 08/04/2018 MARSHALL MORALES KST OPERATOR Ot R91.8 OTHER NONSPECIFIC ABNORMAL FINDING OF [place] 08/04/2018 BAIJOSE MCCANN L KST OPERATOR Ot I10 ESSENTIAL (PRIMARY) HYPERTENSION 08/04/2018 BAIMA JOSE L KST OPERATOR Ot R06.09 OTHER FORMS OF DYSPNEA 08/04/2018 BAIMA, JOSE L KST OPERATOR Ot R07.89 OTHER CHEST PAIN 08/04/2018 BAIMA, JOSE L KST OPERATOR Ot Z72.0 TOBACCO USE 08/04/2018 BAIMA, JOSE L KST OPERATOR Ot I10 ESSENTIAL (PRIMARY) HYPERTENSION 08/04/2018 BAIMA JOSE L KST OPERATOR Ot R06.09 OTHER FORMS OF DYSPNEA 08/04/2018 BAIMA JOSE L KST OPERATOR Ot R07.89 OTHER CHEST PAIN 08/04/2018 BAIMA JOSE L KST OPERATOR Ot Z72.0 TOBACCO USE 08/04/2018 BAIMA JOSE L KST OPERATOR Ot I10 ESSENTIAL (PRIMARY) HYPERTENSION 08/04/2018 BAIBENITEZ MCCANNHER L KST OPERATOR Ot I65.23 OCCLUSION AND STENOSIS OF BILATERAL YUNG 08/04/2018 BAIMAJOSE L KST OPERATOR Ot R06.00 DYSPNEA, UNSPECIFIED 08/04/2018 BAIMABENITEZJOSE L KST OPERATOR Ot Z72.0 TOBACCO USE Procedures Code Description [place] [address] ROUTINE VENIPUNCTURE 02/13/2013 21252 CMP 02/13/2013 5331226 GFR CALC (RESULT ONLY) 02/13/2013 Results Test Result Range CBC With Differential/Platelet - 12/23/15 14:27 WBC 9.4 x10E3/uL 3.4-10.8 RBC 4.74 x10E6/uL 4.14-5.80 Hemoglobin 15.0 g/dL 12.6-17.7 Hematocrit 42.7 % 37.5-51.0 MCV 90 fL 79-97 MCH 31.6 pg 26.6-33.0 MCHC 35.1 g/dL 31.5-35.7 RDW 14.0 % 12.3-15.4 Platelets 194 x10E3/uL 150-379 Neutrophils 41 % Lymphs 47 % Monocytes 5 % Eos 6 % Basos 1 % Neutrophils (Absolute) 3.9 x10E3/uL 1.4-7.0 Lymphs (Absolute) 4.4 x10E3/uL 0.7-3.1 Monocytes(Absolute) 0.5 x10E3/uL 0.1-0.9 Eos (Absolute) 0.6 x10E3/uL 0.0-0.4 Baso (Absolute) 0.1 x10E3/uL 0.0-0.2 Immature Granulocytes 0 % Immature Grans (Abs) 0.0 x10E3/uL 0.0-0.1 Comp. Metabolic Panel (14) - 12/23/15 14:27 Glucose, Serum 125 mg/dL 65-99 BUN 16 mg/dL 8-27 Creatinine, Serum 0.93 mg/dL 0.76-1.27 eGFR If NonAfricn Am 84 mL/min/1.73 >59 eGFR If Africn Am 97 mL/min/1.73 >59 BUN/Creatinine Ratio 17 10-22 Sodium, Serum 140 mmol/L 134-144 Potassium, Serum 4.5 mmol/L 3.5-5.2 Chloride, Serum 100 mmol/L 97-108 Carbon Dioxide, Total 22 mmol/L 18-29 Calcium, Serum 9.5 mg/dL 8.6-10.2 Protein, Total, Serum 6.5 g/dL 6.0-8.5 Albumin, Serum 4.0 g/dL 3.6-4.8 Globulin, Total 2.5 g/dL 1.5-4.5 A/G Ratio 1.6 1.1-2.5 Bilirubin, Total 0.2 mg/dL 0.0-1.2 Alkaline Phosphatase, S 73 IU/L 39-117 AST (SGOT) 12 IU/L 0-40 ALT (SGPT) 19 IU/L 0-44 HCV RT-PCR, Quant (Non-Graph) - 12/23/15 14:27 Hepatitis C Quantitation HCV Not Detected IU/mL Test Information: Comment Prothrombin Time (PT) - 12/23/15 14:27 INR 1.0 0.8-1.2 Prothrombin Time 10.4 sec 9.1-12.0 CBC With Differential/Platelet - 06/21/16 09:54 WBC 8.9 x10E3/uL 3.4-10.8 RBC 4.80 x10E6/uL 4.14-5.80 Hemoglobin 15.5 g/dL 12.6-17.7 Hematocrit 44.1 % 37.5-51.0 MCV 92 fL 79-97 MCH 32.3 pg 26.6-33.0 MCHC 35.1 g/dL 31.5-35.7 RDW 14.1 % 12.3-15.4 Platelets 189 x10E3/uL 150-379 Neutrophils 41 % Lymphs 44 % Monocytes 7 % Eos 7 % Basos 1 % Neutrophils (Absolute) 3.7 x10E3/uL 1.4-7.0 Lymphs (Absolute) 3.9 x10E3/uL 0.7-3.1 Monocytes(Absolute) 0.6 x10E3/uL 0.1-0.9 Eos (Absolute) 0.6 x10E3/uL 0.0-0.4 Baso (Absolute) 0.1 x10E3/uL 0.0-0.2 Immature Granulocytes 0 % Immature Grans (Abs) 0.0 x10E3/uL 0.0-0.1 Comp. Metabolic Panel (14) - 06/21/16 09:54 Glucose, Serum 107 mg/dL 65-99 BUN 13 mg/dL 8-27 Creatinine, Serum 0.92 mg/dL 0.76-1.27 eGFR If NonAfricn Am 85 mL/min/1.73 >59 eGFR If Africn Am 98 mL/min/1.73 >59 BUN/Creatinine Ratio 14 10-22 Sodium, Serum 141 mmol/L 134-144 Potassium, Serum 4.6 mmol/L 3.5-5.2 Chloride, Serum 102 mmol/L 96-106 Carbon Dioxide, Total 22 mmol/L 18-29 Calcium, Serum 9.2 mg/dL 8.6-10.2 Protein, Total, Serum 6.3 g/dL 6.0-8.5 Albumin, Serum 4.2 g/dL 3.6-4.8 Globulin, Total 2.1 g/dL 1.5-4.5 A/G Ratio 2.0 1.1-2.5 Bilirubin, Total 0.2 mg/dL 0.0-1.2 Alkaline Phosphatase, S 82 IU/L 39-117 AST (SGOT) 17 IU/L 0-40 ALT (SGPT) 19 IU/L 0-44 HCV RT-PCR, Quant (Non-Graph) - 06/21/16 09:54 Hepatitis C Quantitation HCV Not Detected IU/mL Test Information: [facility] - 05/24/17 16:39 GLUCOSE 92 mg/dL 65-99 UREA NITROGEN (BUN) 18 mg/dL 7-25 CREATININE 0.98 mg/dL 0.70-1.18 eGFR NON-AFR. CITIZEN OF [place] 78 mL/min/1.73m2 > OR=60 eGFR 90 mL/min/1.73m2 > OR=60 BUN/CREATININE RATIO NOT APPLICABLE (calc) 6-22 SODIUM 139 mmol/L 135-146 POTASSIUM 4.3 mmol/L 3.5-5.3 CHLORIDE 106 mmol/L 98-110 CARBON DIOXIDE 23 mmol/L 20-31 CALCIUM 9.5 mg/dL 8.6-10.3 PROTEIN, TOTAL 7.0 g/dL 6.1-8.1 ALBUMIN 4.3 g/dL 3.6-5.1 GLOBULIN 2.7 g/dL (calc) 1.9-3.7 ALBUMIN/GLOBULIN RATIO 1.6 (calc) 1.0-2.5 BILIRUBIN, TOTAL 0.3 mg/dL 0.2-1.2 ALKALINE PHOSPHATASE 68 U/L 40-115 AST 16 U/L 10-35 ALT 23 U/L 9-46 CBC - 05/24/17 16:39 WHITE BLOOD CELL COUNT 11.6 Thousand/uL 3.8-10.8 RED BLOOD CELL COUNT 5.02 Million/uL 4.20-5.80 HEMOGLOBIN 15.9 g/dL 13.2-17.1 HEMATOCRIT 46.6 % 38.5-50.0 MCV 92.8 fL 80.0-100.0 MCH 31.7 pg 27.0-33.0 MCHC 34.1 g/dL 32.0-36.0 RDW 13.3 % 11.0-15.0 PLATELET COUNT 203 Thousand/uL 140-400 MPV 11.4 fL 7.5-12.5 ABSOLUTE NEUTROPHILS 4768 cells/uL 7394-7738 ABSOLUTE LYMPHOCYTES 5278 cells/uL 850-3900 ABSOLUTE MONOCYTES 742 cells/uL 200-950 ABSOLUTE EOSINOPHILS 696 cells/uL 15-500 ABSOLUTE BASOPHILS 116 cells/uL 0-200 NEUTROPHILS 41.1 % NRG LYMPHOCYTES 45.5 % NRG MONOCYTES 6.4 % NRG EOSINOPHILS 6.0 % NRG BASOPHILS 1.0 % NRG TSH - 05/24/17 16:39 TSH 2.60 mIU/L 0.40-4.50 Encounters ACCT No. Visit Date/Time Discharge Status Pt. Type Provider Facility Loc./Unit Complaint [id number] 08/04/2018 07:52:00 08/04/2018 08:45:00 DIS Outpatient CLARISA ERNST MD Via [facility] YAG [id number] 08/01/2018 06:44:00 08/02/2018 10:19:00 DIS Outpatient CLARISA ERNST MD Via [facility] PREOP YAG [id number] 08/09/2017 13:50:00 08/09/2017 23:59:59 CLS Outpatient BAIMA, JOSE L KST OPERATOR [facility] CARD CHEST DISCOMFORT R07.89 [id number] 07/27/2017 12:40:00 07/27/2017 23:59:59 CLS Outpatient BAIMA, JOSE L KST OPERATOR [facility] RAD CHEST DISCOMFORT [id number] 07/14/2017 07:13:00 07/14/2017 23:59:59 CLS Outpatient BAIMA, JOSE L KST OPERATOR [facility] CARD CHEST DISCOMFORT R07.89 [id number] 06/02/2017 12:20:00 06/02/2017 23:59:59 CLS Outpatient MADL, MARSHALL L KST OPERATOR [facility] RAD R91.1 [id number] 12/22/2016 09:30:00 12/22/2016 23:59:59 CLS Preadmit DOMENICA DE LA ROSA MD [facility] RAD K74.0 LIVER FIBROSIS [id number] 09/25/2015 09:00:00 09/25/2015 13:55:00 DIS Outpatient AUSTIN LUGO DO Via [facility] MULTIPLE SKIN LESIONS [id number] 09/22/2015 05:42:00 09/22/2015 09:27:00 DIS Outpatient AUSTIN LUGO DO Via [facility] PREOP MULTIPLE SKIN LESIONS [id number] 06/24/2015 11:05:00 06/24/2015 13:10:00 DIS Outpatient AUSTIN LUGO DO Via [facility] HX OF POLYPS [id number] 06/20/2015 11:51:00 06/20/2015 23:59:59 CLS Outpatient LUGO AUSTIN CONKLIN [facility] PREOP SCREENING [id number] 10/27/2010 10:08:00 Document Registration [id number] 06/29/2017 09:15:00 06/29/2017 23:59:59 CLS Outpatient MARSHALL MORALES APRN [facility] [id number] 05/24/2017 15:20:00 Document Registration [id number] 12/26/2015 05:05:00 Document Registration [id number] 02/13/2013 15:01:00 02/13/2013 23:59:59 CLS Outpatient JACQUELYN GREER MD [id number] 06/23/2016 19:06:00 Document Registration
--- OUTSIDE RECORDS SUMMARY | 2018-08-04 10:13 | XMS REPORT ---
Author Author DIANE MESSER Organization [employer] Address Unknown Phone Unavailable Care Team Providers Care Slot Machine Key Person Name Role Phone DIANE MESSER Unavailable Allergies No Known Allergies Problems Problem Type Condition Code Onset Dates Condition Status Problem History of colon polyps Z86.010 Active Problem Hepatitis C without hepatic coma B19.20 Active Problem Essential hypertension I10 Active Problem Unspecified hypertrophic and atrophic condition of skin 701.9 Active Assessment Hepatitis C without hepatic coma B19.20 Active Medications No Known Medications Results No Known Results Summary Purpose [employer] Submission
--- OUTSIDE RECORDS SUMMARY | 2018-08-04 10:13 | XMS REPORT ---
Author Author DOMENICA QUEZADA [facility] Address [address] [place] [address] Care Team Providers Care Cut Off Operator Scorer Name Role Phone DOMENICA QUEZADA Unavailable PROBLEMS Type Condition ICD9-CM Code DLJ80-VI Code Onset Dates Condition Status SNOMED Code Problem Unspecified hypertrophic and atrophic condition of skin 701.9 Active 035600735 Problem Essential hypertension I10 Active 45758180 Problem Hepatitis C without hepatic coma B19.20 Active 17070369 Problem Liver fibrosis K74.0 Active 04056877 Problem Back pain M54.9 Active 417344408 Problem Essential hypertension with goal blood pressure less than 130\/85 I10 Active 58348208 Problem History of colon polyps Z86.010 Active 690617312 Problem Lesion of skin of face L98.9 Active 198180787594 Problem History of basal cell cancer Z85.828 Active 010441642 ALLERGIES No Information SOCIAL HISTORY Never Assessed PLAN OF CARE VITAL SIGNS MEDICATIONS Unknown Medications RESULTS Name Result Date Reference Range HEP C PCR QUANT (Non-Graph)-APPROVAL REQUIRED 2016-06-21 Hepatitis C Quantitation HCV Not Detected HCV log10 Test Information: CBC 2016-06-21 WBC 8.9 3.4-10.8 RBC 4.80 4.14-5.80 Hemoglobin 15.5 12.6-17.7 Hematocrit 44.1 37.5-51.0 MCV 92 79-97 MCH 32.3 26.6-33.0 MCHC 35.1 31.5-35.7 RDW 14.1 12.3-15.4 Platelets 189 150-379 Neutrophils 41 Lymphs 44 Monocytes 7 Eos 7 Basos 1 Neutrophils (Absolute) 3.7 1.4-7.0 Lymphs (Absolute) 3.9 0.7-3.1 Monocytes(Absolute) 0.6 0.1-0.9 Eos (Absolute) 0.6 0.0-0.4 Baso (Absolute) 0.1 0.0-0.2 Immature Granulocytes 0 Immature Grans (Abs) 0.0 0.0-0.1 CMP 2016-06-21 Glucose, Serum 107 65-99 BUN 13 8-27 Creatinine, Serum 0.92 0.76-1.27 eGFR If NonAfricn Am 85 >59 eGFR If Africn Am 98 >59 BUN/Creatinine Ratio 14 10-22 Sodium, Serum 141 134-144 Potassium, Serum 4.6 3.5-5.2 Chloride, Serum 102 96-106 Carbon Dioxide, Total 22 18-29 Calcium, Serum 9.2 8.6-10.2 Protein, Total, Serum 6.3 6.0-8.5 Albumin, Serum 4.2 3.6-4.8 Globulin, Total 2.1 1.5-4.5 A/G Ratio 2.0 1.1-2.5 Bilirubin, Total 0.2 0.0-1.2 Alkaline Phosphatase, S 82 39-117 AST (SGOT) 17 0-40 ALT (SGPT) 19 0-44 PROCEDURES Procedure Date Ordered Result Body Site LAB NOT BILLED BY [facility] June 21, 2016 VENIPUNCT, ROUTINE* June 21, 2016 IMMUNIZATIONS No Known Immunizations MEDICAL (GENERAL) HISTORY [...]
== END 2018-08-04 08:45 | disposition home or self-care (01) ==
LOC: SDC 07:52
PROVIDERS: ATTEND Specialist
DX: H26.493 Other secondary cataract, bilateral (principal); I10 Essential (primary) hypertension; Z87.891 Personal history of nicotine dependence; Z79.899 Other long term (current) drug therapy

== ENCOUNTER → 2020-06-30 | Outpatient (CLI) | payer MEDICARE ==
[~2020-06-30] MED LIST changes: -INDO25CA15 PO; +INDO25CA99 PO; -LISI-552 PO; +LISI20TA26 PO
--- NOTE | 2020-06-30 14:18 | Diagnostic Imaging Report ---
EXAMINATION: CT Lung Screening. INDICATION: Screening for lung cancer, 93 pack year history of smoking, current smoker, shortness of air. COMPARISON: 06/02/2017. TECHNIQUE: Noncontrast, low-dose CT imaging performed according to the lung cancer screening protocol. Auto Exposure Controls were utilize during the CT exam to meet ALARA standards for radiation dose reduction. FINDINGS: Several calcified mediastinal and hilar lymph nodes are present. No pathologically enlarged lymph nodes within the chest. Scattered vascular calcifications within the thoracic aorta and its branch vessels including extensive calcifications within the coronary arteries. No aneurysmal dilatation of the thoracic aorta. The heart is within normal limits in size. No pericardial effusion. No pleural effusion. No pneumothorax. Mild background emphysematous changes. Calcified granuloma within the left lower lobe. Calcified granuloma within the left upper lobe. Calcified granuloma within the right lower lobe. No additional suspicious pulmonary nodule or opacity. The trachea is patent. Calcified splenic granuloma. Otherwise, the minimally visualized upper abdomen is unremarkable. Scattered osseous degenerative changes without acute osseous abnormality. IMPRESSION: No acute abnormality. Evidence of chronic granulomatous disease without suspicious pulmonary nodule, mass, or opacity. Mild background emphysematous changes. Scattered vascular calcifications including advanced vasculature calcifications within the coronary arteries. LUNG-RADS CATEGORY: 2: Benign appearance or behavior. FOLLOWUP: Continued annual low-dose CT of the chest in 12 months. Dictated by: Dictated on workstation # [id number]
== END ==
LOC: RAD 11:53
PROVIDERS: ATTEND Pediatrics
DX: Z12.2 Encounter for screening for malignant neoplasm of respiratory organs (principal); J43.9 Emphysema, unspecified; F17.210 Nicotine dependence, cigarettes, uncomplicated
CPT/HCPCS: 71271

== ENCOUNTER 2020-07-11 05:30 | Outpatient (RCR) | payer MEDICARE ==
[~2020-07-11] VITALS: Ht 175.3 cm; Wt 116.6 kg
[~2020-07-11 05:30] MED LIST changes: +OMEG-82 PO; +ROSU20TA32 PO
== END 2020-07-11 09:36 | disposition home or self-care (01) ==
LOC: PREOP 05:30
PROVIDERS: ATTEND Surgery
DX: Z01.812 Encounter for preprocedural laboratory examination (principal); R11.0 Nausea; R14.2 Eructation; Z20.822 Contact with and (suspected) exposure to COVID-19; Z86.010 Personal history of colon polyps
CPT/HCPCS: 87635

== ENCOUNTER 2020-07-15 09:47 | Day surgery (SDC) | payer MEDICARE ==
[~2020-07-15] VITALS: Ht 175 cm; Wt 117.0 kg
[2020-07-15] MEDS ORDERED: LACTATED RINGERS 1,000 ML IV ONE (09:53)
[2020-07-15] MEDS ORDERED: LACTATED RINGERS 1,000 ML IV STA (09:57)
[2020-07-15] MEDS ORDERED: HURRICAINE EXT TUBE (BENZOCAINE) XX PRN (10:00)
[2020-07-15 10:10] VITALS: BP 137/74
[2020-07-15] MEDS ORDERED: MIDAZOLAM 2 MG/2 ML (VERSED) VIAL ONE (10:19)
[2020-07-15] MEDS ORDERED: PROPOFOL INJECTION 50 ML IV ONE (10:19)
[2020-07-15] MEDS ORDERED: HURRICAINE EXT TUBE (BENZOCAINE) ONE (10:29)
[2020-07-15 11:30] VITALS: BP 136/75
[2020-07-15 11:35] VITALS: BP 129/71
--- NOTE | 2020-07-15 11:36 | Progress Note-Post Operative ---
Post-Operative Progess Note Surgeon (s)/Contemporary Or Modern Dancer (s) Surgeon AUSTIN LUGO DO Contemporary Or Modern Dancer: na Pre-Operative Diagnosis nausea, belching, hx polyps Post-Operative Diagnosis gastritis, hiatal henria, int hemorrhoids, diverticulosis, sigmoid polyp cecal lipoma Procedure & Operative Findings Date of Procedure 07/15/20 Procedure Performed/Findings egd c biopsies, colonoscopy c cold snare polypectomy Anesthesia Type per [facility] Estimated Blood Loss Estimated blood loss (mL): none Specimens/Packing Specimens Removed antrum, ge, sigmoid polyp AUSTIN LUGO DO Jul 15, 2020 11:36
--- NOTE | 2020-07-15 11:37 | Discharge Inst-Simple/Standard ---
Discharge Inst-Standard Discharge Medications New, Converted or Re-Newed RX: RX on Chart Patient Instructions/Follow Up Plan of Care/Instructions/FU: 2 weeks Adrian Activity as Tolerated: Yes Discharge Diet: Regular Diet AUSTIN LUGO DO Jul 15, 2020 11:37
[2020-07-15] MEDS ORDERED: PANT40TA2 PO (11:38)
[2020-07-15 11:40] VITALS: BP 140/72
[2020-07-15 12:00] VITALS: BP 126/84
[2020-07-15 12:09] VITALS: BP 126/84
--- NOTE | 2020-07-15 12:32 | Anesthesia-General Post-Op ---
MAC Patient Condition Mental Status/LOC: Same as Preop Cardiovascular: Satisfactory Nausea/Vomiting: Absent Respiratory: Satisfactory Pain: Controlled Complications: Absent Post Op Complications Complications None Follow Up Care/Instructions Patient Instructions None needed. Anesthesiology Discharge Order Discharge Order Patient was seen after the procedure and he was doing well, no complaints, stable vital signs, no apparent adverse anesthesia problems. ERICK DOUGLASS DO Jul 15, 2020 12:32
--- NOTE | 2020-07-15 16:42 | OPERATIVE REPORT ---
DATE OF SERVICE: 07/15/2020 PREOPERATIVE DIAGNOSES: Nausea, belching history of colon polyps. POSTOPERATIVE DIAGNOSES: Gastritis, hiatal hernia, internal hemorrhoids, diverticulosis, sigmoid polyp, cecal lipoma. PROCEDURE: EGD with biopsies, colonoscopy with cold snare polypectomy sigmoid polyp. SURGEON: Austin Campbell DO ANESTHESIA: Per MDA. ESTIMATED BLOOD LOSS: None. COMPLICATIONS: None. INDICATIONS: The patient is a 75-year-old male with nausea, belching and history of colon polyps. He understands risks and benefits of procedure and wished to proceed with procedure. Consent was signed in the chart. DESCRIPTION OF PROCEDURE: The patient was taken to the endoscopy suite, placed in left lateral recumbent position. Timeout was performed. Scope was inserted into mouth, down the esophagus, stomach and into the duodenum without difficulty. There were no polyps, masses or ulcerations within the duodenum. Scope was slowly retracted back into the stomach where it was further insufflated. Changes consistent with gastritis were present. Biopsy of the antrum was obtained. Scope was retroflexed noting a small hiatal hernia and a small gastric polyp, no other pathology noted. Scope was returned to its normal position, slowly withdrawn to distal esophagus. Some slight changes of reflux present. Biopsy of GE junction was obtained. No polyps, masses or ulcerations. Scope was slowly retracted back until completely removed. The patient then had a digital rectal exam, there were no palpable polyps, masses or ulcerations, but internal hemorrhoidal disease. Scope was inserted in the rectum, advanced all the way to cecum with minimal difficulty. There were no polyps, masses or ulcerations. 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 Scope was then continuously retracted back. Prep was adequate with irrigation and suction. Scope was continuously retracted back. There were no polyps, masses or ulcerations within the cecum, ascending, transverse, descending colon. There is diverticulosis throughout the majority of the colon. In the sigmoid colon, continued with diverticulosis and also a small polyp towards the distal portion, which was cold snare polypectomy was performed. This was obtained for specimen. Scope was then continuously retracted back into the rectum where scope was inserted and retracted multiple times, noting no other pathology. Scope was then slowly retracted until completely removed. The patient tolerated procedure well without any complications. He was taken to recovery room in stable condition. RECOMMENDATIONS: The patient will be started on Protonix 40 mg daily. Await biopsy results. The patient will need repeat colonoscopy in 5 years. Any issues before that be seen at that time. Recommend high fiber diet. Job ID: [id number] DocumentID: [id number] Dictated Date: 07/15/2020 11:41:31 Export Freight Specialist Date: 07/15/2020 16:42:24 Dictated By: AUSTIN CAMPBELL DO
== END 2020-07-15 12:09 | disposition home or self-care (01) ==
LOC: ENDO 09:47
PROVIDERS: ATTEND Surgery
DX: K44.9 Diaphragmatic hernia without obstruction or gangrene (principal); K63.5 Polyp of colon; K20.90 Esophagitis, unspecified without bleeding; K29.70 Gastritis, unspecified, without bleeding; K64.8 Other hemorrhoids; K57.30 Diverticulosis of large intestine without perforation or abscess without bleeding; D17.5 Benign lipomatous neoplasm of intra-abdominal organs; I10 Essential (primary) hypertension; F17.210 Nicotine dependence, cigarettes, uncomplicated; Z79.899 Other long term (current) drug therapy; Z86.010 Personal history of colon polyps; Z80.9 Family history of malignant neoplasm, unspecified; Z83.3 Family history of diabetes mellitus
CPT/HCPCS: 88305

== ENCOUNTER 2020-08-11 14:14 | Emergency (ER) | payer MEDICARE ==
[~2020-08-11] VITALS: Ht 177.8 cm; Wt 108.6 kg
[~2020-08-11 14:14] MED LIST changes: +PANT40TA2 PO
[2020-08-11] MEDS ORDERED: LIDOCAINE 1% INJ 20 ML 20 ML VIAL ONE (14:16)
[2020-08-11 14:18] VITALS: BP 140/96
[2020-08-11] MEDS ORDERED: LIDOCAINE 1% INJ 20 ML 20 ML VIAL INJ ONE (14:30)
--- NOTE | 2020-08-11 14:37 | ED Upper Extremity ---
General Chief Complaint: Laceration Stated Complaint: R HAND LAC Nursing Triage Note: PT AMB TO [facility] 6 WITH COMPLAINT OF RIGHT HAND LACERATION. STATES WAS REMOVING A WINDOW AND CUT HAND ON BROKEN GLASS. Nursing Sepsis Screen: No Definite Risk Source: patient Exam Limitations: no limitations History of Present Illness Date Seen by Provider: Aug 11, 2020 Time Seen by Provider: 14:33 Initial Comments With a laceration to the dorsal aspect of the right hand that occurred just prior to arrival while trying to replace a broken glass window at home. He is not sure about his last tetanus vaccine date but he is not interested in having another today. He was offered 1. Onset: just prior to arrival Severity: mild Pain/Injury Location: right hand Method of Injury: direct blow Modifying Factors: Worse With Movement Allergies and Home Medications Allergies Coded Allergies: No Known Drug Allergies (Unverified , 06/20/15) Home Medications Indomethacin 25 Mg Capsule, 25 MG PO TID, (Reported) Lisinopril 20 Mg Tablet, 20 MG PO DAILY, (Reported) Pantoprazole Sodium 40 Mg Tablet.dr, 40 MG PO DAILY Prescribed by: AUSTIN LUGO on 07/15/20 1138 Rosuvastatin Calcium 20 Mg Tablet, 20 MG PO DAILY, (Reported) Patient Home Medication List Home Medication List Reviewed: Yes Review of Systems Constitutional: see HPI EENTM: see HPI Respiratory: no symptoms reported Cardiovascular: no symptoms reported Genitourinary: no symptoms reported Musculoskeletal: no symptoms reported Skin: see HPI Psychiatric/Neurological: No Symptoms Reported Past Qcwjbvr-Pvkphv-Smcztj Hx Patient Social History Alcohol Use: Denies Use Smoking Status: Current Everyday Smoker Type Used: Cigarettes 2nd Hand Smoke Exposure: Yes Recent Infectious Disease Expo: No Recent Hopitalizations: No Immunizations Up To Date Tetanus Booster (TDap): Unknown Date of Pneumonia Vaccine: Apr 29, 2015 Date of Influenza Vaccine: Apr 22, 2020 Seasonal Allergies Seasonal Allergies: No Past Medical History Surgeries: Yes (SKIN CA REMOVED, FINGER ON LEFT HAND REATTACHED) Respiratory: No Currently Using CPAP: No Cardiac: Yes Hypertension Neurological: No Sexually Transmitted Disease: No Genitourinary: No Gastrointestinal: No (DIVERTICULOSIS) Hepatitis Musculoskeletal: No Endocrine: No HEENT: No 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 0.0oz. 113.374591tn; 34.00 BMI Method: General Appearance: WD/WN, no apparent distress Neck: non-tender, full range of motion Respiratory: no respiratory distress, no accessory muscle use Shoulder: normal inspection, non-tender Elbow/Forearm: normal inspection, non-tender Wrist: Yes normal inspection Hand: Right, laceration (There is a 3.5 cm laceration to the dorsal aspect of the hand over the second and third MCP joints. This is very superficial and down to the subcutaneous tissue but not any deeper than that. There is no evidence of any extensor tendon injury as he can extend each finger with normal sensation distally.) Neurologic/Psychiatric: alert, normal mood/affect, oriented x 3 Skin: normal color, warm/dry Procedures/Interventions Wound Location: Upper Extremities Wound Length (cm): 3.5 Wound's Depth, Shape: irregular Wound Explored: clean Irrigated w/ Saline (ccs): 300 Anesthesia: 1% Lidocaine Volume Anesthetic (ccs): 3 Suture: Ethlion Suture Size: 5-0 Progress/Results/Core Measures Results/Orders My Orders Orders - KOMAL BATEMAN APRN Lidocaine 1% Inj 20 Ml (Xylocaine 1% Inj (08/11/20 14:30) Lidocaine 1% Inj 20 Ml (Xylocaine 1% Inj (08/11/20 14:16) Medications Given in ED Current Medications Medications Dose Ordered Sig/Aashish Route Start Time Stop Time Status Last Admin Dose Admin Lidocaine HCl 20 ml ONCE ONCE INJ 08/11/20 14:30 08/11/20 14:31 DC 08/11/20 14:32 20 ML Vital Signs/I&O 08/11/20 14:18 Temp 36.1 Pulse 89 Resp 16 B/P (MAP) 140/96 (111) Pulse Ox 96 O2 Delivery Room Air Blood Pressure Mean: 111 Departure Impression Primary Impression: Laceration of hand Qualified Codes: S61.411A - Laceration without foreign body of right hand, initial encounter Disposition: HOME, SELF-CARE Condition: Stable Departure-Patient Inst. Decision time for Depature: 14:36 Referrals: DOMENICA QUEZADA MD (PCP/Family) Primary Care Physician Patient Instructions: Laceration Repair With Stitches ED Add. Discharge Instructions: 1. Return to ER for any concerns. Return in 7-10 days for stitch removal. You can shower with this, rebandage daily for the first week. All discharge instructions reviewed with patient and/or family. Voiced understanding. KOMAL BATEMAN MOTHER REPAIRER Aug 11, 2020 14:37
== END 2020-08-11 14:50 | disposition home or self-care (01) ==
LOC: EDUNIT# 14:14 → ER 14:16
DX: S61.411A Laceration without foreign body of right hand, initial encounter (principal); I10 Essential (primary) hypertension; F17.210 Nicotine dependence, cigarettes, uncomplicated; W25.XXXA Contact with sharp glass, initial encounter
CPT/HCPCS: 12001

== ENCOUNTER 2020-10-20 17:05 | Emergency (ER) | payer MEDICARE ==
[~2020-10-20] VITALS: Ht 172.8 cm; Wt 106.1 kg
[2020-10-20 17:47] VITALS: BP 136/64
[2020-10-20] MEDS ORDERED: TETRACAINE 0.5% OPHTH SOLN 4 ML BTL (SINGLE DOSE ONLY) OU ONE (18:30)
[2020-10-20] MEDS ORDERED: FLUORESCEIN (FLUOR-I-STRIPS) 1 MG STRP OU ONE (18:30)
--- NOTE | 2020-10-20 18:31 | ED EENT ---
History of Present Illness General Chief Complaint: Eye Problems Stated Complaint: R EYE PAIN Nursing Triage Note: Tuesday morning, pt was mowing, felt like something in right eye. Went to PCP today, doctor stated he had something in his cornea that was tearing it up, was unable to see an opthomologist Source: patient Exam Limitations: no limitations History of Present Illness Date Seen by Provider: Oct 20, 2020 Time Seen by Provider: 18:15 Initial Comments Patient to the ER by private conveyance with his significant other and chief complaint that on Tuesday, 3 days ago he got something in his eye. He has been trying to do with it over the weekend and [facility] They were unable to get him to follow-up with the eye doctor so sent him to the ER. He has not had an fluorescein stain/Wood lamp eye exam or dilated eye exam. Allergies and Home Medications Allergies Coded Allergies: No Known Drug Allergies (Unverified , 06/20/15) Home Medications Indomethacin 25 Mg Capsule, 25 MG PO TID, (Reported) Lisinopril 20 Mg Tablet, 20 MG PO DAILY, (Reported) Pantoprazole Sodium 40 Mg Tablet.dr, 40 MG PO DAILY Prescribed by: AUSTIN LUGO on 07/15/20 1138 Rosuvastatin Calcium 20 Mg Tablet, 20 MG PO DAILY, (Reported) Patient Home Medication List Home Medication List Reviewed: Yes Review of Systems Review of Systems Constitutional: No chills, No diaphoresis Eyes: Denies Blindness; Blurred Vision; Denies Drainage; Pain (Right) Ears: Denies Dizziness, Denies Pain Nose: denies clots, denies pain Mouth: denies clots, denies pain Throat: denies pain, denies swelling Respiratory: No cough, No phlegm, No short of breath Cardiovascular: No chest pain, No palpitations Gastrointestinal: No abdominal pain, No nausea All Other Systems Reviewed Negative Unless Noted: Yes Past Bfmxule-Myicew-Hrkopd Hx Patient Social History Tobacco Use?: Yes Tobacco type used: Cigarettes Smoking Status: Current Everyday Smoker Use of E-Cig and/or Vaping dev: No Use of E-Cig and/or Vaping Krzysztof: Never a User Substance use?: Yes Substance type: Marijuana Alcohol Use?: No Pt feels they are or have been: No Immunizations Up To Date Tetanus Booster (TDap): Unknown Seasonal Allergies Seasonal Allergies: No Past Medical History Surgeries: Yes (SKIN CA REMOVED, FINGER ON LEFT HAND REATTACHED) Respiratory: No Currently Using CPAP: No Cardiac: Yes Hypertension Neurological: No Sexually Transmitted Disease: No Genitourinary: No Gastrointestinal: No (DIVERTICULOSIS) Hepatitis Musculoskeletal: No Endocrine: No HEENT: No 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 0.0oz. 113.940771xs; 35.00 BMI Method: General Appearance: WD/WN, mild distress Eyes: right eye other (Fluorescein stain reveals no corneal abrasion or ulceration. No foreign debris seen under the upper eyelid on the right side); left eye normal inspection; bilateral eye PERRL, bilateral eye EOMI Ears: bilateral ear auricle normal, bilateral ear canal normal Nose: normal inspection; No discharge Neck: No full range of motion, No normal inspection Cardiovascular: No normal peripheral pulses, No regular rate, rhythm Respiratory: No lungs clear, No normal breath sounds, No no respiratory distress, No no accessory muscle use Gastrointestinal: No normal bowel sounds; non tender Neurologic/Psychiatric: alert, normal mood/affect Skin: normal color, warm/dry Procedures/Interventions Suture Size: 5-0 Progress/Results/Core Measures Results/Orders My Orders Orders - MNOI RASMUSSEN Tetracaine 0.5% Ophth Danelle Sdv (Tetracai (10/20/20 18:30) Fluorescein Strips ([id number]) (10/20/20 18:30) Medications Given in ED Current Medications Medications Dose Ordered Sig/Aashish Route Start Time Stop Time Status Last Admin Dose Admin Fluorescein Sodium 1 mg ONCE ONCE OU 10/20/20 18:30 10/20/20 18:31 DC 10/20/20 18:35 1 MG Tetracaine HCl 4 ml ONCE ONCE OU 10/20/20 18:30 10/20/20 18:31 DC 10/20/20 18:35 4 ML Vital Signs/I&O 10/20/20 17:47 Temp 36.9 Pulse 82 Resp 18 B/P (MAP) 136/64 (88) Pulse Ox 98 O2 Delivery Room Air Blood Pressure Mean: 88 Progress Progress Note #1: Time: 18:30 Progress Note Tetracaine and fluorescein dye and examination under a Martin lamp. Visual acuity screening Progress Note #2: Time: 18:46 Progress Note Discussed the case with Dr. Siddiqui, optometry and she agrees to see the patient at her clinic immediately after discharge from the ER. Departure Impression Primary Impression: Foreign body of cornea Qualified Codes: T15.01XA - Foreign body in cornea, right eye, initial encounter Disposition: HOME, SELF-CARE Condition: Stable Departure-Patient Inst. Decision time for Depature: 18:47 Referrals: ESTEBAN VALADEZ OD, JULIE A MD (PCP/Family) Primary Care Physician Patient Instructions: Foreign Body in Eye ED Add. Discharge Instructions: Present to Dr. Siddiqui's office at the address listed below immediately after leaving the ER. She will let you in the front door. Ofloxacin 3 drops twice a day to the right eye. Do this for the next week All discharge instructions reviewed with patient and/or family. Voiced understanding. Copy Copies To 1: ESTEBAN VALADEZ OD, TITUS J Oct 20, 2020 18:30
[2020-10-20] MEDS ORDERED: RX-OFLOXACIN 0.3% OPHTH SOLN 5 ML OP STA (18:52)
== END 2020-10-20 18:55 | disposition home or self-care (01) ==
LOC: EDUNIT# 17:05 → ER 17:06
DX: T15.01XA Foreign body in cornea, right eye, initial encounter (principal); I10 Essential (primary) hypertension; F17.210 Nicotine dependence, cigarettes, uncomplicated; Z79.899 Other long term (current) drug therapy
CPT/HCPCS: 99283

== ENCOUNTER 2022-08-06 12:04 | Emergency (ER) | payer MEDICARE ==
[2022-08-06] MEDS ORDERED: fentaNYL INJ 100 MCG/2 ML AMP IVP STA (12:19)
--- NOTE | 2022-08-06 12:24 | ED Abdominal Pain ---
General Chief Complaint: Abdominal/GI Problems Stated Complaint: BACK PAIN | ABD PAIN Source of Information: Patient Exam Limitations: No Limitations History of Present Illness Date Seen by Provider: Aug 06, 2022 Time Seen by Provider: 12:21 Initial Comments Patient is a 77-year-old male with a history of AAA, degenerative disc disease lower back who presents the ED with right flank pain with radiation to right sided abdomen. This is occurred around 3 PM yesterday. Patient was working on a floor. He states he was twisting and turning felt a sharp pain in his right lower back. Patient states he vomited once yesterday few times today secondary to the pain. Rates pain 6-8 out of 10. Denies history of kidney stones. Reports a decreased urination over the past few days. States pain appears to be worse with movement. No history of kidney stones. States he has been constipated last bowel movement 3 days ago which was hard. Patient states last image of his abdomen was 3 cm last May. Patient had some mild shortness of breath this morning but that has improved. Denies chest pain, cough, headache, dizziness, visual changes, bowel or urine incontinence, saddle paresthesia, lower extremity weakness, dysuria Allergies and Home Medications Allergies Coded Allergies: No Known Drug Allergies (Unverified , 06/20/15) Patient Home Medication List Home Medication List Reviewed: Yes Hydrocodone/Acetaminophen (Hydrocodone-Acetamin 5-325 mg) 5 Mg-325 Mg Tablet, 1 TAB PO Q4H PRN for PAIN-MODERATE (5-7) Prescribed by: JERMAINE CLARK on 08/06/22 1444 Indomethacin (Indomethacin) 25 Mg Capsule, 25 MG PO TID, (Reported) Entered as Reported by: ZULEIMA MARTINEZ on 09/22/15 0922 Lisinopril (Lisinopril) 20 Mg Tablet, 20 MG PO DAILY, (Reported) Entered as Reported by: ZULEIMA MARTINEZ on 06/20/15 1213 [place]-3S/Dha/Epa/Fish Oil/D3 (Fish Oil + D3 Softgel) 1 Each Capsule, 1 EACH PO, (Reported) Entered as Reported by: HAILEE HINTON on 07/08/20 1356 Pantoprazole Sodium (Protonix) 40 Mg Tablet.dr, 40 MG PO DAILY Prescribed by: AUSTIN LUGO on 07/15/20 1138 Rosuvastatin Calcium (Rosuvastatin Calcium) 20 Mg Tablet, 20 MG PO DAILY, (Reported) Entered as Reported by: HAILEE HINTON on 07/08/20 1356 Review of Systems Review of Systems Constitutional: No chills, No diaphoresis, No malaise, No weakness EENTM: No Double Vision, No Eye Pain Respiratory: Denies Cough, Denies Orthopnea, Denies Shortness of Air, Denies Other Cardiovascular: Denies Chest Pain, Denies Edema Gastrointestinal: Abdominal Pain, Constipated; Denies Diarrhea; Nausea, Vomiting Genitourinary: Denies Burning, Denies Discharge, Denies Drainage Musculoskeletal: back pain; No joint pain Skin: No change in color, No change in hair/nails All Other Systems Reviewed Negative Unless Noted: Yes Past Brxadoi-Ekvesx-Wkkdra Hx Immunizations Up To Date Tetanus Booster (TDap): Unknown Seasonal Allergies Seasonal Allergies: No Past Medical History Surgeries: Yes (SKIN CA REMOVED, FINGER ON LEFT HAND REATTACHED) Respiratory: No Currently Using CPAP: No Cardiac: Yes Hypertension Neurological: No Sexually Transmitted Disease: No Genitourinary: No Gastrointestinal: No (DIVERTICULOSIS) Hepatitis Musculoskeletal: No Endocrine: No HEENT: No 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 0.0oz. [id number]; 35.00 BMI Method: General Appearance: WD/WN, no apparent distress HEENT: PERRL/EOMI, normal ENT inspection, TMs normal, pharynx normal Neck: non-tender, full range of motion, supple Respiratory: chest non-tender, lungs clear, normal breath sounds, no respiratory distress, no accessory muscle use Cardiovascular: regular rate, rhythm, no edema, no gallop, no JVD Gastrointestinal: normal bowel sounds, non tender, soft, no organomegaly, no pulsatile mass Extremities: normal range of motion, non-tender, normal inspection, no pedal edema Back: normal inspection, no CVA tenderness, no vertebral tenderness Neurologic/Psychiatric: 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 II-XII nml as tested, no motor/sensory deficits, alert, normal mood/affect, oriented x 3 Skin: normal color, warm/dry Procedures/Interventions Suture Size: 5-0 Progress/Results/Core Measures Results/Orders Lab Results Laboratory Tests Test 08/06/22 12:15 08/06/22 14:18 Range/Units White Blood Count 10.6 4.3-11.0 10^3/uL Red Blood Count 4.99 4.30-5.52 10^6/uL Hemoglobin 15.8 13.3-17.7 g/dL Hematocrit 45 40-54 % Mean Corpuscular Volume 91 80-99 fL Mean Corpuscular Hemoglobin 32 25-34 pg Mean Corpuscular Hemoglobin Concent 35 32-36 g/dL Red Cell Distribution Width 13.5 10.0-14.5 % Platelet Count 177 130-400 10^3/uL Mean Platelet Volume 10.0 9.0-12.2 fL Immature Granulocyte % (Auto) 0 % Neutrophils (%) (Auto) 64 42-75 % Lymphocytes (%) (Auto) 30 12-44 % Monocytes (%) (Auto) 5 0-12 % Eosinophils (%) (Auto) 1 0-10 % Basophils (%) (Auto) 1 0-10 % Neutrophils # (Auto) 6.8 1.8-7.8 10^3/uL Lymphocytes # (Auto) 3.1 1.0-4.0 10^3/uL Monocytes # (Auto) 0.5 0.0-1.0 10^3/uL Eosinophils # (Auto) 0.1 0.0-0.3 10^3/uL Basophils # (Auto) 0.1 0.0-0.1 10^3/uL Immature Granulocyte # (Auto) 0.0 0.0-0.1 10^3/uL Sodium Level 138 135-145 MMOL/L Potassium Level 4.1 3.6-5.0 MMOL/L Chloride Level 109 H 98-107 MMOL/L Carbon Dioxide Level 18 L 21-32 MMOL/L Anion Gap 11 5-14 MMOL/L Blood Urea Nitrogen 9 7-18 MG/DL Creatinine 0.84 0.60-1.30 MG/DL Estimat Glomerular Filtration Rate 91 BUN/Creatinine Ratio 11 Glucose Level 121 H 70-105 MG/DL Calcium Level 9.4 8.5-10.1 MG/DL Corrected Calcium 9.3 8.5-10.1 MG/DL Total Bilirubin 0.6 0.1-1.0 MG/DL Aspartate Amino Transf (AST/SGOT) 16 5-34 U/L Alanine Aminotransferase (ALT/SGPT) 17 0-55 U/L Alkaline Phosphatase 89 40-136 U/L Troponin I < 0.028 <0.028 NG/ML Total Protein 7.4 6.4-8.2 GM/DL Albumin 4.1 3.2-4.5 GM/DL Lipase 9 8-78 U/L Urine Color YELLOW Urine Clarity CLEAR Urine pH 6.5 5-9 Urine Specific [place] 1.025 H 1.016-1.022 Urine Protein 2+ H NEGATIVE Urine Glucose (UA) NEGATIVE NEGATIVE Urine Ketones 1+ H NEGATIVE Urine Nitrite NEGATIVE NEGATIVE Urine Bilirubin NEGATIVE NEGATIVE Urine Urobilinogen 0.2 < = 1.0 MG/DL Urine Leukocyte Esterase NEGATIVE NEGATIVE Urine RBC (Auto) TRACE-I H NEGATIVE Urine RBC 5-10 H /HPF Urine WBC NONE /HPF Urine Squamous Epithelial Cells 0-2 /HPF Urine Crystals NONE /LPF Urine Bacteria TRACE /HPF Urine Casts NONE /LPF Urine Mucus MODERATE H /LPF Urine Culture Indicated NO My Orders Orders - DELORES OLMEDO Cbc With Automated Diff (08/06/22 12:19) Comprehensive Metabolic Panel (08/06/22 12:19) Lipase (08/06/22 12:19) Troponin I Anu (08/06/22 12:19) Ekg Tracing (08/06/22 12:19) Ua Culture If Indicated (08/06/22 12:19) Ct Angio Chest/Abd W(R/O Ad) (08/06/22 12:19) Ondansetron Injection (Zofran Injectio (08/06/22 12:30) Fentanyl Inj (Sublimaze Injection) (08/06/22 12:19) Iohexol Injection (Omnipaque 350 Mg/Ml 1 (08/06/22 12:45) Received Contrast (Hold Metformin- Contr (08/06/22 12:45) Ns (Ivpb) (Sodium Chloride 0.9% Ivpb Bag (08/06/22 12:45) Ns Iv 1000 Ml (Sodium Chloride 0.9%) (08/06/22 14:00) Medications Given in ED Current Medications Medications Dose Ordered Sig/Aashish Route Start Time Stop Time Status Last Admin Dose Admin Iohexol 100 ml ONCE ONCE IV 08/06/22 12:45 08/06/22 12:46 DC 08/06/22 12:53 80 ML Ondansetron HCl 4 mg ONCE ONCE IVP 08/06/22 12:30 08/06/22 12:31 DC 08/06/22 12:40 4 MG Sodium Chloride 100 ml ONCE ONCE IV 08/06/22 12:45 08/06/22 12:46 DC 08/06/22 12:53 80 ML Vital Signs/I&O 08/06/22 08/06/22 12:10 14:56 Temp 36.2 37.0 Pulse 64 57 Resp 18 18 B/P (MAP) 186/86 (119) 127/82 Pulse Ox 97 O2 Delivery Room Air Comment Sinus rhythm, prolonged OR interval, 63 bpm, QRS duration 93 MS, QTc 425 MS Departure Communication (PCP) Reviewed previous ER visits, H&P, lab test. Patient complaining of right flank pain with radiation to right sided abdomen. Described as sharp. Started yesterday after working on the floor. Similar pain in the past. Appears to be more musculoskeletal however he does have a history of AAA last CT scan last May 3.5 cm. No chest pain. Mild shortness of breath today. Denies of any dysuria but does have some decreased urine output. Denies gross hematuria. no history of kidney stones. Due to current presentation, pain location and hypertensive on arrival. CT angio chest abdomen and pelvis was ordered with cardiac work-up. EKG without evidence of ST elevation or depression. No evidence of arrhythmia. Normal troponin. Patient was hypertensive on arrival. Urinalysis positive for hematuria without evidence of infection. Chemistry and hematology was grossly unremarkable. CT angio of chest abdomen pelvis was negative for aortic dissection. Infrarenal aortic aneurysm reaching 3.7 cm in diameter with eccentric mural thrombus. Not currently on anticoagulants. Discussed patient with Dr. Pate cardiovascular surgeon at [facility] in [place] regarding the eccentric mural thrombus. He states this is chronic no further treatment at this time. Recommend continue monitoring blood pressure and to follow-up with him in the office. Patient was given fentanyl 50mcg with improvement of pain. No evidence of nephrolithiasis, hydronephrosis, appendic itis, cholecystitis. I suspect this is more muscular secondary to pain with movement and location. He does have a history of a spur of his thoracic spine which may be result of some of the pain. No bowel or urine incontinence, saddle paresthesia, lower extremity weakness. will discharge a few days worth of pain medication as needed. Recommend anti-inflammatories, heating pad, stretching and rest. Follow-up with PCP in 3 to 4 days for reevaluation. If any worsening symptoms return back to ED suggesting cauda equina syndrome. No neurological red flag findings. Impression Primary Impression: Back pain Disposition: HOME, SELF-CARE Condition: Stable Departure-Patient Inst. Decision time for Depature: 14:43 Referrals: DOMENICA QUEZADA MD (PCP/Family) Primary Care Physician Patient Instructions: Low Back Pain ED Add. Discharge Instructions: Recommend rest, heat, pain medication as needed. Recommend stretching. If continued pain follow-up with your primary care physician for further evaluation. Recommend following up with Dr. Pate vascular surgeon at [facility] for further evaluation of your aneurysm. Continue controlling blood pressure All discharge instructions reviewed with patient and/or family. Voiced understanding. Scripts Hydrocodone/Acetaminophen (Hydrocodone-Acetamin 5-325 mg) 5 Mg-325 Mg Tablet 1 TAB PO Q4H PRN for PAIN-MODERATE (5-7), #8 TAB Prov: DELORES OLMEDO 08/06/22 DELORES OLMEDO Aug 06, 2022 12:24
[2022-08-06 12:25] LABS: BASOPHILS # (AUTO) 0.1 10^3/uL (0.0-0.1); BASOPHILS % (AUTO) 1 % (0-10); EOSINOPHILS # (AUTO) 0.1 10^3/uL (0.0-0.3); EOSINOPHILS % (AUTO) 1 % (0-10); HEMATOCRIT 45 % (40-54); HEMOGLOBIN 15.8 g/dL (13.3-17.7); LYMPHOCYTES # (AUTO) 3.1 10^3/uL (1.0-4.0); LYMPHOCYTES % (AUTO) 30 % (12-44); MEAN CORPUSCULAR HEMOGLOBIN 32 pg (25-34); MEAN CORPUSCULAR HGB CONC 35 g/dL (32-36); MEAN CORPUSCULAR VOLUME 91 fL (80-99); MONOCYTES # (AUTO) 0.5 10^3/uL (0.0-1.0); MONOCYTES % (AUTO) 5 % (0-12); NEUTROPHILS # (AUTO) 6.8 10^3/uL (1.8-7.8); NEUTROPHILS % (AUTO) 64 % (42-75); PLATELET COUNT 177 10^3/uL (130-400); WHITE BLOOD COUNT 10.6 10^3/uL (4.3-11.0)
[2022-08-06] MEDS ORDERED: ONDANSETRON 4 MG/2 ML (SDV) Z0FRAN IVP ONE (12:30)
[2022-08-06 12:32] LABS: ALBUMIN 4.1 GM/DL (3.2-4.5)
[2022-08-06 12:33] LABS: CHLORIDE 109 MMOL/L (98-107); POTASSIUM 4.1 MMOL/L (3.6-5.0); SODIUM 138 MMOL/L (135-145)
[2022-08-06 12:34] LABS: CALCIUM 9.4 MG/DL (8.5-10.1)
[2022-08-06 12:35] LABS: GLUCOSE 121 MG/DL (70-105); TOTAL PROTEIN 7.4 GM/DL (6.4-8.2)
[2022-08-06 12:36] LABS: CARBON DIOXIDE 18 MMOL/L (21-32)
[2022-08-06 12:37] LABS: BILIRUBIN,TOTAL 0.6 MG/DL (0.1-1.0)
[2022-08-06 12:38] LABS: ALKALINE PHOSPHATASE 89 U/L (40-136); CREATININE SERUM 0.84 MG/DL (0.60-1.30); GFR ESTIMATED 91
[2022-08-06 12:39] LABS: BUN/CREATININE RATIO 11
[2022-08-06 12:41] LABS: ALANINE AMINOTRANSFERASE 17 U/L (0-55)
[2022-08-06 12:42] LABS: LIPASE 9 U/L (8-78)
[2022-08-06] MEDS ORDERED: IOHEXOL 350 MG/ML 100 ML (OMNIPAQUE 350) VIAL IV ONE (12:45)
[2022-08-06] MEDS ORDERED: NS 100 ML (IVPB) BAG IV ONE (12:45)
[2022-08-06] MEDS ORDERED: HOLD METFORMIN - RECEIVED CONTRAST 20 ML VIAL IV SCH (12:45)
--- NOTE | 2022-08-06 13:33 | Diagnostic Imaging Report ---
INDICATION: Right flank pain with upper abdominal pain in patient with aortic aneurysm. TECHNIQUE: CTA of the aorta is performed from the chest through the abdomen and upper pelvis after bolus intravenous administration of iodinated contrast. 3D reformatted images are produced. Automatic exposure controls were utilized to keep dose as low as reasonably achievable. FINDINGS: Thoracic aorta is widely patent. There is atherosclerotic calcification of coronary arteries with calcification along the aortic valve. There is a normal three-vessel branching pattern arising from the aortic arch with mild mural thickening at the origins of the great vessels. Descending thoracic aorta reveals [id number] atherosclerotic plaque. Lungs are clear. There is no significant pleural or pericardial fluid. There are calcified mediastinal and hilar lymph nodes without evidence of pathologically enlarged adenopathy. There is diffuse thoracic spondylosis. Endplate spurring of thoracic spine also indicates diffuse idiopathic skeletal hyperostosis. Within the abdomen, the abdominal aorta demonstrates normal caliber in the proximal region with wide patency of celiac trunk and its major branches as well as the superior mesenteric artery and bilateral main renal arteries. There is accessory right renal artery which is patent as well. Infrarenal abdominal aorta reaches a diameter of 3.7 cm with eccentric mural thickening. Inferior mesenteric artery is patent. There is no focal hepatic, gallbladder, pancreatic, right adrenal gland or splenic lesion. There is diffuse enlargement of the left adrenal gland which could be due to hyperplasia or adenoma. There is good perfusion to the kidneys without evidence of mass or hydronephrosis. IMPRESSION: 1. Mild thoracic aortic atherosclerosis without evidence of dissection or aneurysm. There is calcification at the aortic valve which may be due to aortic stenosis. 2. Dense coronary artery calcifications are noted. 3. Infrarenal aortic aneurysm reaching 3.7 cm in diameter with eccentric mural thrombus. There is no evidence of dissection or complication. 4. Left adrenal gland enlargement may be due to adenoma or hyperplasia. Dictated by: Dictated on workstation # [id number]
[2022-08-06] MEDS ORDERED: NS IV 1000 ML 1,000 ML IV STA (14:00)
[2022-08-06 14:39] LABS: BACTERIA,URINE TRACE /HPF; BILIRUBIN,URINE NEGATIVE (NEGATIVE); CLARITY,URINE CLEAR; COLOR,URINE YELLOW; GLUCOSE, URINE (UA) NEGATIVE (NEGATIVE); KETONES,URINE 1+ (NEGATIVE); LEUKOCYTE ESTERASE ,URINE NEGATIVE (NEGATIVE); NITRITE,URINE NEGATIVE (NEGATIVE); PH,URINE 6.5 (5-9); PROTEIN,URINE 2+ (NEGATIVE); SQUAMOUS EPITHELIAL CELL,UR 0-2 /HPF
[2022-08-06] MEDS ORDERED: ACHD5005 PO (14:44)
[2022-08-06 14:56] VITALS: BP 127/82
== END 2022-08-06 15:02 | disposition home or self-care (01) ==
LOC: EDUNIT# 12:04 → ER 12:06
DX: M54.50 Low back pain, unspecified (principal); I71.43 Infrarenal abdominal aortic aneurysm, without rupture; I21.9 Acute myocardial infarction, unspecified; I10 Essential (primary) hypertension; R31.9 Hematuria, unspecified; X50.1XXA Overexertion from prolonged static or awkward postures, initial encounter
CPT/HCPCS: 36415; 71275; 74175; 80053; 81000; 83690; 84484; 85025; 93005